=== PATIENT | female | born 1960 | race American Indian/Alaskan Native ===

== ENCOUNTER 2021-06-09 20:52 | Inpatient (IN) | payer MEDICARE ==
[2021-06-09] MEDS ORDERED: SODIUM CHLORIDE 0.9% 1000 ML IV SOLN IV ONE (21:14)
[2021-06-09] MEDS ORDERED: VANCOMYCIN 1,250 MG in SODIUM CHLORIDE 0.9% 500 ML 500 ML IV ONE (21:14)
[2021-06-09] MEDS ORDERED: CEFEPIME/NS 2 GM/100 ML 2 GM/100 ML BAG IV ONE (21:14)
--- NOTE | 2021-06-09 21:14 | Emergency Department Report ---
ED Fever HPI - General Chief Complaint: Fever Stated Complaint: FEVER PUI?: No Time Seen by Provider: 06/09/21 21:03 Source: EMS, other Exam Limitations: language barrier - History of Present Illness Initial Comments: Chief complaint: Fever HPI: This is a 61-year-old female with history of CVA with resultant dysphagia right-sided hemiparesis, CVA, hypertension, chronic kidney disease, venous thrombolic embolism, gastrostomy, dementia, COVID-19, stage IV sacral decubitus ulcer, septic shock, failure to thrive, UTI, hyperlipidemia, major affective di sorder, anxiety disorder, constipation, anemia, rhinitis who presents from [facility] for fever 102.5 F hypotension 8754. Patient is nonverbal at baseline. Timing/Duration: this evening Fever Severity/Quality: greater than 102 F ED Review of Systems ROS: Stated complaint: FEVER Other details as noted in HPI Comment: Unobtainable due to pts medical conditions (Nonverbal) ED Past Medical Hx - Past Medical History Previous Medical History?: Yes Hx Hypertension: Yes Hx CVA: Yes Hx Congestive Heart Failure: No Hx Diabetes: No Hx Deep Vein Thrombosis: (unknown) Hx Seizures: Yes Hx Asthma: No Hx COPD: No Hx Dementia: Yes Additional medical history: encephalopathy, anemia, apahsia, dysphagia, hypookalemia - Surgical History Past Surgical History?: Yes Hx Pacemaker: No Hx Internal Defibrillator: No - Social History Smoking Status: Unknown if ever smoked - Medications Home Medications: Home Medications Medication Instructions Recorded Confirmed Last Taken Type Acetaminophen [Acetaminophen 650 mg [place] Q6H PRN supp.rect 06/02/20 09/04/20 Unknown Rx SUPPOS] Aspirin EC [Halfprin EC] 81 mg FEEDTUBE QDAY 07/21/20 09/04/20 Unknown History Atorvastatin [Lipitor] 80 mg FEEDTUBE QDAY 07/21/20 09/04/20 Unknown History Baclofen 5 mg FEEDTUBE TID 07/21/20 09/04/20 Unknown History Ferrous Sulfate 7.5 mg FEEDTUBE QDAY 07/21/20 09/04/20 Unknown History Losartan Potassium 50 mg FEEDTUBE QDAY 07/21/20 09/04/20 Unknown History Sertraline [Zoloft] 100 mg FEEDTUBE QDAY 07/21/20 09/04/20 Unknown History carvediloL [Coreg] 6.25 mg FEEDTUBE BID 07/21/20 09/04/20 Unknown History cloNIDine-TTS PATCH [Catapres-Tts 1 patch TD 1XW 07/21/20 09/04/20 Unknown History 0.3mg Patch] donepeziL [Aricept] 10 mg FEEDTUBE QDAY 07/21/20 09/04/20 Unknown History levETIRAcetam [Keppra] 100 mg PO Q12HR 07/21/20 09/04/20 Unknown History Furosemide [Lasix TAB] 40 mg PO QDAY #30 tablet 07/29/20 09/04/20 Unknown Rx amLODIPine 2.5 mg PO QDAY #30 tablet 07/29/20 09/04/20 Unknown Rx ALBUTEROL NEB's [Proventil 0.083% 2.5 mg IH Q4HRT PRN nebu 09/04/20 Unknown Rx NEBS] Ascorbic Acid [Vitamin C] 500 mg PO BID tablet 09/04/20 Unknown Rx Cholecalciferol (Vitamin D3) 5,000 unit PO DAILY tablet 09/04/20 Unknown Rx [Vitamin D3] Famotidine [Pepcid] 20 mg PO QAM tablet 09/04/20 Unknown Rx Lipase/Protease/Amylase [Pancreaze 1 each FEEDTUBE PRN PRN capsule 09/04/[address],500 Unit] Zinc Sulfate 220 mg PO BID capsule 09/04/20 Unknown Rx amLODIPine 5 mg FEEDTUBE QDAY tablet 09/04/20 Unknown Rx carvediloL [Coreg] 12.5 mg FEEDTUBE DAILY tablet 09/04/20 Unknown Rx levoFLOXacin [Levaquin TAB] 750 mg PO QDAY #3 tablet 09/04/20 09/04/20 Unknown Rx ED Physical Exam - General Limitations: No Limitations General appearance: alert, in no apparent distress, cachectic, other (Contracted extremities. Warm to touch) - Head Head exam: Present: atraumatic, normocephalic - Eye Eye exam: Present: normal appearance - ENT ENT exam: Present: mucous membranes moist - Neck Neck exam: Present: normal inspection, full ROM. Absent: tenderness, meningismus - Respiratory Respiratory exam: Present: decreased breath sounds. Absent: wheezes, rales, rhonchi, accessory muscle use, prolonged expiratory - Cardiovascular Cardiovascular Exam: Present: regular rate, normal rhythm, normal heart sounds. Absent: systolic murmur, diastolic murmur, rubs, gallop - GI/Abdominal GI/Abdominal exam: Present: soft, normal bowel sounds, other (Gastrostomy tube present). Absent: distended, tenderness, guarding, rebound - Extremities Exam Extremities exam: Present: other (Cachectic contracted extremities without e lisset) - Back Exam Back exam: Present: other (See below for skin exam) - Neurological Exam Neurological exam: Present: alert - Psychiatric Psychiatric exam: Present: depressed, flat affect - Skin Skin exam: Present: warm, dry, normal color, erythema (Erythema extends into the thighs and gluteus), other (Large stage IV sacral decubitus ulcer with eschar and purulence surrounding erythema and excoriation.). Absent: rash ED Course Vital Signs 06/09/21 06/09/21 06/09/21 21:09 21:26 21:31 Temperature 102.5 F H Pulse Rate 84 87 86 Respiratory 22 18 29 H Rate Blood Pressure Blood Pressure 88/57 [Left] O2 Sat by Pulse 94 98 Oximetry 06/09/21 06/09/21 21:45 22:01 Temperature Pulse Rate 87 85 Respiratory 28 H 25 H Rate Blood Pressure 88/55 Blood Pressure [Left] O2 Sat by Pulse 99 98 Oximetry - Reevaluation(s) Reevaluation #1: 06/09/21 21:53 RN informed me that she removed clonidine patch from patient's left chest. Reevaluation #2: 06/09/21 23:30 Repeat blood pressure after removal of clonidine patch and 30 mL/kg per normal saline bolus 101/72. No indication for vasopressor therapy at this time. Patient not have tachycardia or severe lactic acidosis. Reevaluation #3: 06/10/21 00:31 Blood pressure remained normal improved. Norepinephrine ordered as needed. ED Medical Decision Making - Lab Data Result diagrams: 06/09/21 21:35 06/09/21 21:35 - Radiology Data Radiology results: report reviewed Patient Name: KEIRA RAMEY Gender: Female Date of : 1960 Referring Provider: LATOSHA ABREU Organization: [facility] Accession Number: [id number] Requested Date: June 09, 2021 21:14 Report Status: Final Requested Procedure: 1 Procedure Description: XR chest 1V ap Modality: XR Findings Reporting MD: Dago Anne Dictation Time: June 09, 2021 20:41 Hemodialysis Patient Care Specialist: Not available Phone Specialist Date: CHEST 1 VIEW 06/09/2021 8:36 PM INDICATION / CLINICAL INFORMATION: Fever severe sepsis. COMPARISON: 08/30/2020 FINDINGS: SUPPORT DEVICES: None. HEART / MEDIASTINUM: No significant abnormality. LUNGS / PLEURA: Mild interstitial prominence within the lower lungs appears improved No pneumothorax. Signer Name: Dago Anne MD Signed: 06/09/2021 8:41 PM Workstation Name: [id number] [place] [address] Cat Scan Report Signed Patient: KEIRA RAMEY MR#: [id number] 57 : 1960 Acct:[id number] Age/Sex: 61 / F ADM Date: 06/09/21 Loc: ED Attending Dr: Ordering Physician: Latosha Lopes MD Date of Service: 06/09/21 Procedure(s): CT abdomen pelvis wo con Accession Number(s): [id number] cc: Latosha Lopes MD CT CHEST, ABDOMEN, AND PELVIS WITHOUT CONTRAST INDICATION / CLINICAL INFORMATION: septic shock abnormal liver function sacral ulcer. TECHNIQUE: Axial CT images were obtained through the chest, abdomen, and pelvis without contrast. All CT scans at this location are performed using CT dose reduction for ALARA by means of automated exposure control. COMPARISON: August 2020 FINDINGS: CHEST: Increased densities are seen within the lower lungs however these densities appear improved since August. Mild interstitial prominence within bilateral lungs. Only trace effusions. Thoracic aorta is slightly prominent however unchanged. ABDOMEN/PELVIS: Liver is mildly enlarged. A tube is noted. Spleen, adrenal glands, pancreas and upper GI tract appear normal. There is a sacral ulceration with loss of soft tissue overlying the sacrum. Underlying bony sclerosis and irregularity with surrounding soft tissue density. No drainable collection is seen. No bowel obstruction.. Tiny focus of gas in the bladder. Degenerative changes seen throughout. IMPRESSION: 1. Large ulceration overlying the sacrum with left gluteal decubitus ulceration. This extends to the level of the sacrum and there is mild sclerosis and irregularity within the sacrum. Osteomyelitis is not excluded. Findings also seen on prior exam. 2. Lower lobe atelectasis/infiltrate with trace effusions. Signer Name: Dago nAne MD Signed: 06/09/2021 10:57 PM Workstation Name: [id number] Transcribed By: CLARE Dictated By: DORETHA ANNE MD Electronically Authenticated By: DORETHA ANNE MD Signed Date/Time: 06/09/212256 DD/ 53 TD/TT: - Medical Decision Making 1. Septic shock due to infected sacral decubitus ulcer, bilateral lower extremity cellulitis. No tissue infection evident on examination: CT findings likely reflective of osteomyelitis. No convincing evidence of pneumonia. Urinalysis pending. Purulent opaque urine collected in Aguil[place] catheter bag. 2. Abnormal liver function tests with enlarged liver on CT scan no hyperbilirubinemia to indicate biliary obstruction considerations: hepatic steat osis, shock liver, medication adverse effect 3. Acute prerenal injury: Vasomotor nephropathy due to hypoperfusion. Work-up reflects leukocytosis anemia uptrending lactic acidosis which prompted CVL insertion as well as persistent hypotension. Critical Care Time: Yes Critical care time in (mins) excluding proc time.: 40 Critical care attestation.: If time is entered above; I have spent that time in minutes in the direct care of this critically ill patient, excluding procedure time. 40 minutes of critical care time excluding procedures were used in the care of the patient. I came immediately to the bedside upon patient's arrival. I obtained history from EMS at the bedside. I discussed treatment plan with the [facility] team members. I reviewed electronic record. Patient required immediate intervention due to septic shock. Patient required multiple interventions and reassessments. ED Disposition Clinical Impression: Septic shock, Acute kidney injury, Stage 4 skin ulcer of sacral region, Complicated UTI (urinary tract infection), Decubitus ulcer, stage 4 with infec tion Disposition: ADMITTED INPATIENT Is pt being admited?: Yes Does the pt Need Aspirin: No Condition: Fair
[2021-06-09] MEDS ORDERED: VANCOMYCIN 1,250 MG in SODIUM CHLORIDE 0.9% 250ML 250 ML IV ONE (21:30)
--- NOTE | 2021-06-09 21:45 | XRay Report ---
CHEST 1 VIEW 06/09/2021 8:36 PM INDICATION / CLINICAL INFORMATION: Fever severe sepsis. COMPARISON: 08/30/2020 FINDINGS: SUPPORT DEVICES: None. HEART / MEDIASTINUM: No significant abnormality. LUNGS / PLEURA: Mild interstitial prominence within the lower lungs appears improved No pneumothorax. Signer Name: Dago Anne MD Signed: 06/09/2021 9:41 PM Workstation Name: [id number]
[2021-06-09] MEDS ORDERED: VANCOMYCIN PHARMACY TO DOSE IV SCH (22:00)
[2021-06-09 22:08] LABS: Albumin 2.2 g/dL (3.9-5); Calcium 8.9 mg/dL (8.4-10.2)
--- NOTE | 2021-06-09 23:01 | Cat Scan Report ---
CT CHEST, ABDOMEN, AND PELVIS WITHOUT CONTRAST INDICATION / CLINICAL INFORMATION: septic shock abnormal liver function sacral ulcer. TECHNIQUE: Axial CT images were obtained through the chest, abdomen, and pelvis without contrast. All CT scans a t this location are performed using CT dose reduction for ALARA by means of automated exposure contro l. COMPARISON: August 2020 FINDINGS: CHEST: Increased densities are seen within the lower lungs however these densities appear improved si nce August. Mild interstitial prominence within bilateral lungs. Only trace effusions. Thoracic aorta is slightly prominent however unchanged. ABDOMEN/PELVIS: Liver is mildly enlarged. A tube is noted. Spleen, adrenal glands, pancreas and upper GI tract appear normal. There is a sacral ulceration with loss of soft tissue overlying the sacrum. Underlying bony sclerosis and irregularity with surrounding soft tissue density. No drainable collection is seen. No bowel obs truction.. Tiny focus of gas in the bladder. Degenerative changes seen throughout. IMPRESSION: 1. Large ulceration overlying the sacrum with left gluteal decubitus ulceration. This extends to the level of the sacrum and there is mild sclerosis and irregularity within the sacrum. Osteomyelitis is not excluded. Findings also seen on prior exam. 2. Lower lobe atelectasis/infiltrate with trace effusions. Signer Name: Dago Anne MD Signed: 06/09/2021 10:57 PM Workstation Name: [id number]
[2021-06-10 00:07] LABS: Hematocrit 22.8 % (30.3-42.9); Hemoglobin 7.4 gm/dl (10.1-14.3); Mean Corpuscular HGB Conc 33 % (30-34); Mean Corpuscular Volume 87 fl (79-97); Platelet Count 245 K/mm3 (140-440); Red Blood Count 2.63 M/mm3 (3.65-5.03); Red Cell Distribution Width 16.5 % (13.2-15.2)
[2021-06-10] MEDS ORDERED: LORazepam 2 MG/ML VIAL IV STA (00:27)
[2021-06-10] MEDS ORDERED: levETIRAcetam 1000 MG/NS 0.75% 1,000 MG/100 ML BAG IV ONE ×2 (00:28→03:31)
[2021-06-10] MEDS ORDERED: MORPHINE 4 MG/1 ML INJ IV PRN (00:28)
[2021-06-10] MEDS ORDERED: NORepinephrine/NS 8 MG-250 ML 8 MG/250 ML INFUS..BTL IV SCH (01:00)
--- NOTE | 2021-06-10 01:01 | XRay Report ---
CHEST 1 VIEW 06/10/2021 12:32 AM INDICATION / CLINICAL INFORMATION: right internal jugular CVL insertion. COMPARISON: 06/09/2021 FINDINGS: SUPPORT DEVICES: Right IJ line tip overlies distal SVC HEART / MEDIASTINUM: No significant abnormality. LUNGS / PLEURA: Mild interstitial prominence within the lungs without significant change No pneumotho rax. Signer Name: Dago Anne MD Signed: 06/10/2021 12:56 AM Workstation Name: [id number]
[2021-06-10 01:27] LABS: Amorphous Crystals,Urine Few; Bilirubin,Urine NEG (Negative); Blood,Urine NEG (Negative); Color,Urine Amber (Yellow); Mucus,Urine FEW /HPF
[2021-06-10 01:36] LABS: Protein,Urine <15 mg/dL mg/dL (Negative); WBC,Urine < 1.0 /HPF (0.0-6.0)
[2021-06-10] MEDS ORDERED: HYDROmorphone 1 MG/1 ML INJ IV PRN (02:20)
[2021-06-10] MEDS ORDERED: ONDANSETRON 4 MG/2 ML INJ IV PRN (02:20)
--- NOTE | 2021-06-10 02:28 | History and Physical Report ---
History of Present Illness Date of examination: 06/10/21 Date of admission: 06/10/21 Chief complaint: fever History of present illness: 61-year-old female with history of CVA with resultant dysphagia right-sided hemiparesis, CVA, hypertension, chronic kidney disease, venous thrombolic embolism, gastrostomy, dementia, COVID-19, stage IV sacral decubitus ulcer, septic shock, failure to thrive, UTI, hyperlipidemia, major affective disorder, anxiety disorder, constipation, anemia, rhinitis who presents from [facility] facility for fever 102.5 F and patient is hypotensive 88/ 54. Patient is nonverbal at baseline. In the emergency room patient is found to have WBC of 21.2, hemoglobin of 7.4 hematocrit 22.8, BUN of 53 creatinine 1.4 and lactic acid 3.40, CT scan of the abdomen pelvis showed large ulceration overlying the sacrum with left gluteal decubitus ulceration. These extend to the level of the sacrum and there is mild sclerosis and ileal irregularity within the sacrum. Osteomyelitis is not excluded #2 lower lobe atelectasis infiltrate with trace effusion. Repeat blood pressure after removal of clonidine patch and 30 mL/kg per normal saline bolus 101/72. No indication for vasopressor therapy at this time.'s were going to admit the patient IMCU overnight we will put the patient on IV fluid and IV antibiotics cefepime and vancomycin. Will consult infectious disease evaluation Past History Past Medical History: hypertension, renal failure, stroke, other (hronic kidney disease, venous thrombolic embolism, gastrostomy, dementia, COVID-19, stage IV sacral decubitus ulcer, septic shock, failure to thrive, UTI, hyperlipidemia, major affective disorder, anxiety disorder, constipation, anemia, rhinitis ) Medications and Allergies Allergies Allergy/AdvReac Type Severity Reaction Status Date / Time adhesive tape AdvReac Unknown Verified 08/30/20 22:21 lisinopril AdvReac Unknown Verified 08/30/20 22:21 Home Medications Medication Instructions Recorded Confirmed Last Taken Type Acetaminophen [Acetaminophen 650 mg [place] Q6H PRN supp.rect 06/02/20 09/04/20 Unknown Rx SUPPOS] Aspirin EC [Halfprin EC] 81 mg FEEDTUBE QDAY 07/21/20 09/04/20 Unknown History Atorvastatin [Lipitor] 80 mg FEEDTUBE QDAY 07/21/20 09/04/20 Unknown History Baclofen 5 mg FEEDTUBE TID 07/21/20 09/04/20 Unknown History Ferrous Sulfate 7.5 mg FEEDTUBE QDAY 07/21/20 09/04/20 Unknown History Losartan Potassium 50 mg FEEDTUBE QDAY 07/21/20 09/04/20 Unknown History Sertraline [Zoloft] 100 mg FEEDTUBE QDAY 07/21/20 09/04/20 Unknown History carvediloL [Coreg] 6.25 mg FEEDTUBE BID 07/21/20 09/04/20 Unknown History cloNIDine-TTS PATCH [Catapres-Tts 1 patch TD 1XW 07/21/20 09/04/20 Unknown History 0.3mg Patch] donepeziL [Aricept] 10 mg FEEDTUBE QDAY 07/21/20 09/04/20 Unknown History levETIRAcetam [Keppra] 100 mg PO Q12HR 07/21/20 09/04/20 Unknown History Furosemide [Lasix TAB] 40 mg PO QDAY #30 tablet 07/29/20 09/04/20 Unknown Rx amLODIPine 2.5 mg PO QDAY #30 tablet 07/29/20 09/04/20 Unknown Rx ALBUTEROL NEB's [Proventil 0.083% 2.5 mg IH Q4HRT PRN nebu 09/04/20 Unknown Rx NEBS] Ascorbic Acid [Vitamin C] 500 mg PO BID tablet 09/04/20 Unknown Rx Cholecalciferol (Vitamin D3) 5,000 unit PO DAILY tablet 09/04/20 Unknown Rx [Vitamin D3] Famotidine [Pepcid] 20 mg PO QAM tablet 09/04/20 Unknown Rx Lipase/Protease/Amylase [Pancreaze 1 each FEEDTUBE PRN PRN capsule 09/04/[address],500 Unit] Zinc Sulfate 220 mg PO BID capsule 09/04/20 Unknown Rx amLODIPine 5 mg FEEDTUBE QDAY tablet 09/04/20 Unknown Rx carvediloL [Coreg] 12.5 mg FEEDTUBE DAILY tablet 09/04/20 Unknown Rx levoFLOXacin [Levaquin TAB] 750 mg PO QDAY #3 tablet 09/04/20 09/04/20 Unknown Rx Active Meds: Active Medications NORepinephrine/NS 8 MG-250 ML (Norepinephrine/Ns 8 Mg-250 Ml (Double Conc)) 8 mg in 250 mls @ 3.75 mls/hr IV TITRATE NELIDA; Protocol Morphine Sulfate (Morphine 4 Mg/1 Ml Inj) 4 mg IV ONCE PRN PRN Reason: Pain , Severe (7-10) Review of Systems All systems: negative Constitutional: fever, malaise, lethargy Neurological: change in mentation Exam - Constitutional Vitals: Temp Pulse Resp BP Pulse Ox 102.5 F H 99 H 38 H 104/62 95 06/09/21 21:09 06/10/21 01:01 06/10/21 01:01 06/10/21 01:01 06/10/21 01:01 General appearance: Present: no acute distress, well-nourished - EENT Eyes: Present: PERRL ENT: hearing intact, clear oral mucosa - Neck Neck: Present: supple, normal ROM - Respiratory Respiratory effort: normal Respiratory: bilateral: diminished - Cardiovascular Heart Sounds: Present: S1 & S2. Absent: rub, click - Extremities Extremities: pulses symmetrical, No edema Peripheral Pulses: within normal limits - Abdominal General gastrointestinal: Present: soft, non-tender, non-distended, normal bowel sounds, other (Gastrostomy tube present) Female genitourinary: Present: normal - Integumentary Integumentary: Present: clear, warm, dry - Musculoskeletal Musculoskeletal: gait normal, strength equal bilaterally - Psychiatric Psychiatric: other (Patient is lethargic) - Neurologic Neurologic: CNII-XII intact, moves all extremities, other (Patient is lethargic) - Additional findings Additional findings: Skin warm, dry, normal color, erythema (Erythema extends into the thighs and gluteus), other (Large stage IV sacral decubitus ulcer with eschar and purulence surrounding erythema and excoriation.). Absent: rash Results - Labs CBC & Chem 7: 06/09/21 21:35 06/09/21 21:35 Labs: Laboratory Last Values WBC 21.2 K/mm3 (4.5-11.0) H 06/09/21 21:35 RBC 2.63 M/mm3 (3.65-5.03) L 06/09/21 21:35 Hgb 7.4 gm/dl (10.1-14.3) L 06/09/21 21:35 Hct 22.8 % (30.3-42.9) L 06/09/21 21:35 MCV 87 fl (79-97) 06/09/21 21:35 MCH 28 pg (28-32) 06/09/21 21:35 MCHC 33 % (30-34) 06/09/21 21:35 RDW 16.5 % (13.2-15.2) H 06/09/21 21:35 Plt Count 245 K/mm3 (140-440) 06/09/21 21:35 [place] % (Auto) Grinding Wheel Facer 06/09/21 21:35 Eos % (Auto) Grinding Wheel Facer 06/09/21 21:35 Baso % (Auto) Grinding Wheel Facer 06/09/21 21:35 Lymph # (Auto) Grinding Wheel Facer 06/09/21 21:35 [place] # (Auto) Grinding Wheel Facer 06/09/21 21:35 Eos # (Auto) Grinding Wheel Facer 06/09/21 21:35 Baso # (Auto) Grinding Wheel Facer 06/09/21 21:35 Seg Neutrophils # Grinding Wheel Facer 06/09/21 21:35 Sodium 137 mmol/L (137-145) 06/09/21 21:35 Potassium 4.5 mmol/L (3.6-5.0) 06/09/21 21:35 Chloride 99.7 mmol/L (98-107) 06/09/21 21:35 Carbon Dioxide 25 mmol/L (22-30) 06/09/21 21:35 Anion Gap 17 mmol/L 06/09/21 21:35 BUN 53 mg/dL (7-17) H 06/09/21 21:35 Creatinine 1.4 mg/dL (0.6-1.2) H 06/09/21 21:35 Estimated GFR 47 ml/min 06/09/21 21:35 BUN/Creatinine Ratio 38 % 06/09/21 21:35 Glucose 145 mg/dL (65-100) H 06/09/21 21:35 Lactic Acid 3.40 mmol/L (0.7-2.0) H* 06/09/21 23:16 Calcium 8.9 mg/dL (8.4-10.2) 06/09/21 21:35 Total Bilirubin 1.20 mg/dL (0.1-1.2) 06/09/21 21:35 AST 336 units/L (5-40) H 06/09/21 21:35 ALT 330 units/L (7-56) H 06/09/21 21:35 Alkaline Phosphatase 208 units/L (35-129) H 06/09/21 21:35 Total Protein 7.9 g/dL (6.3-8.2) 06/09/21 21:35 Albumin 2.2 g/dL (3.9-5) L 06/09/21 21:35 Albumin/Globulin Ratio 0.4 % 06/09/21 21:35 Urine Color [place] (Yellow) 06/10/21 00:30 Urine Turbidity Cloudy (Clear) 06/10/21 00:30 Urine pH 6.0 (5.0-7.0) 06/10/21 00:30 Ur Specific [place] 1.019 (1.003-1.030) 06/10/21 00:30 Urine Protein <15 mg/dl mg/dL (Negative) 06/10/21 00:30 Urine Glucose (UA) Neg mg/dL (Negative) 06/10/21 00:30 Urine Ketones Neg mg/dL (Negative) 06/10/21 00:30 Urine Blood Neg (Negative) 06/10/21 00:30 Urine Nitrite Neg (Negative) 06/10/21 00:30 Urine Bilirubin Neg (Negative) 06/10/21 00:30 Urine Urobilinogen 2.0 mg/dL (<2.0) 06/10/21 00:30 Ur Leukocyte Esterase Lg (Negative) 06/10/21 00:30 Urine WBC (Auto) < 1.0 /HPF (0.0-6.0) 06/10/21 00:30 Urine RBC (Auto) 6.0 /HPF (0.0-6.0) 06/10/21 00:30 U Epithel Cells (Auto) < 1.0 /HPF (0-13.0) 06/10/21 00:30 Urine WBC Clumps 3+ /HPF 06/10/21 00:30 Amorphous Crystals Few 06/10/21 00:30 Urine Mucus Few /HPF 06/10/21 00:30 Microbiology: Microbiology 06/09/21 21:35 Peripheral/Venous Blood Culture - Preliminary Culture in Progress 06/09/21 21:37 Peripheral/Venous Blood Culture - Preliminary Culture in Progress - Imaging and Cardiology Chest x-ray: report reviewed CT scan - abdomen: report reviewed CT scan - chest: report reviewed Assessment and Plan VTE prophylaxis?: Chemical Plan of care discussed with patient/family: Yes - Patient Problems (1) Septic shock Current Visit: Yes Status: Acute Plan to address problem: Admit the patient to the [facility] overnight. Oxygen via nasal cannula 3 L/min DuoNeb by nebulizer every 4 hours. Normal saline at the rate of 125 cc/h. Cefepime 1 g IV every 8 hours. Vancomycin 1 g IV every 12 hours. Will consult infectious disease for evaluation. We do the blood culture wound culture. Wound care evaluation. Recheck CBC BMP in the morning (2) Decubitus ulcer, stage 4 with infection Current Visit: Yes Status: Acute Plan to address problem: Cefepime 1 g IV every 8 hours. Vancomycin 1 g IV every 12 hours. Will consult infectious disease for evaluation. We do the blood culture wound culture. Wound care evaluation. Recheck CBC BMP in the morning (3) Acute kidney injury Current Visit: Yes Status: Acute Plan to address problem: Avoid nephrotoxic drug. Renally dose medication. Normal saline at the rate of 125 cc/h. Recheck BMP in the morning (4) Complicated UTI (urinary tract infection) Current Visit: Yes Status: Acute Plan to address problem: We will send the urine for culture. Patient is on cefepime 1 g IV every 8 hours and. Vancomycin 1 g IV every 12 hours (5) Acute metabolic encephalopathy Current Visit: No Status: Acute Plan to address problem: Most likely secondary to sepsis ISSAC. We will put the patient oxygen 3 L/min. DuoNeb by nebulizer every 4 hours as needed. IV fluid and antibiotic. We will monitor the patient closely (6) Pneumonia of both lower lobes Current Visit: No Status: Acute Plan to address problem: Suspected pneumonia. Oxygen via nasal cannula 3 L/min DuoNeb by nebulizer every 4 hours. Normal saline at the rate of 125 cc/h. Cefepime 1 g IV every 8 hours. Vancomycin 1 g IV every 12 hours. Will consult infectious disease for evaluation. We do the blood culture . (7) DVT prophylaxis Current Visit: No Status: Acute Plan to address problem: Heparin 5000 unit SQ every 12 hours for DVT prophylaxis. Pepcid 20 mg p.o. twice daily for GI prophylaxis. Patient is a full code
[2021-06-10] MEDS ORDERED: VANCOMYCIN PHARMACY TO DOSE IV SCH (03:00)
[2021-06-10] MEDS ORDERED: CEFEPIME/NS 1 GM/100 ML 1 GM/100 ML BAG IV SCH (03:00)
[2021-06-10] MEDS ORDERED: VANCOMYCIN/NS 1 GM/250 ML 1 GM/250 ML BAG IV SCH (03:00)
[2021-06-10] MEDS ORDERED: ACETAMINOPHEN 650 MG RECT SUPP PR ONE (04:08)
[2021-06-10] MEDS: SODIUM CHLORIDE 0.9% 1000 ML 1,000 ML IV SCH ×3 (04:20→21:38)
[2021-06-10] MEDS: ACETAMINOPHEN 325 MG TAB PO PRN ×2 (06:39→21:40)
[2021-06-10 08:12] LABS: Eosinophils % (Manual) 1 % (0.0-4.3); Monocytes % (Manual) 1 % (0.0-7.3)
[2021-06-10 08:13] LABS: Basophils % (Manual) 1 % (0.0-1.8)
[2021-06-10] MEDS: CEFEPIME/NS 1 GM/100 ML 1 GM/100 ML BAG IV SCH ×2 (09:57→21:38)
[2021-06-10] MEDS: HEPARIN 5,000 UNIT/1 ML VIAL SUB-Q SCH ×2 (09:57→21:39)
[2021-06-10] MEDS: FAMOTIDINE 10 MG TAB PO SCH ×2 (09:57→21:39)
[2021-06-10] MEDS ORDERED: FAMOTIDINE 20 MG TAB PO SCH (10:00)
--- NOTE | 2021-06-10 13:50 | Progress Note ---
Assessment and Plan Assessment and plan: History of present illness: 61-year-old female with history of CVA with resultant dysphagia right-sided hemiparesis, CVA, hypertension, chronic kidney disease, venous thrombolic embolism, gastrostomy, dementia, COVID-19, stage IV sacral decubitus ulcer, septic shock, failure to thrive, UTI, hyperlipidemia, major affective disorder, anxiety disorder, constipation, anemia, rhinitis who presents from [facility] half-way facility for fever 102.5 F and patient is hypotensive 88/ 54. Patient is nonverbal at baseline. Admitted to [facility] for Severe Sepsis 2/2 to decubitus ulcer and UTI. Hospital Course: 06/10: Continue empiric abx, will follow ID input. BLood pressure and lactic acid downtrending improved, continue fluid resuscitation. Will follow culture data. COVID PCR is negative. Assessment and Plan: (1) Severe Sepsis POA (improved) Current Visit: Yes Status: Acute Plan to address problem: WBC of 21.2, hemoglobin of 7.4 hematocrit 22.8, BUN of 53 creatinine 1.4 and lactic acid 3.40, Normal saline at the rate of 125 cc/h. Cefepime 1 g IV every 8 hours. Vancomycin 1 g IV every 12 hours. Will consult infectious disease for evaluation. blood culture wound culture. COVID PCR Negative. MRSA swab Wound care evaluation. Recheck CBC BMP in the morning Not currently on pressors. (2) Decubitus ulcer, stage 4 with infection Current Visit: Yes Status: Acute Plan to address problem: -Cefepime 1 g IV every 8 hours. Vancomycin 1 g IV every 12 hours. Will consult infectious disease for evaluation. We do the blood culture wound culture. Wound care evaluation. Recheck CBC BMP in the morning -CT scan of the abdomen pelvis showed large ulceration overlying the sacrum with left gluteal decubitus ulceration. These extend to the level of the sacrum and there is mild sclerosis and ileal irregularity within the sacrum. Osteomyelitis is not excluded #2 lower lobe atelectasis infiltrate with trace effusion. - Appears to have chronic osteomyelitis. (3) Acute kidney injury due to vasomotor nephropathy Current Visit: Yes Status: Acute Plan to address problem: Avoid nephrotoxic drug. Renally dose medication. Normal saline at the rate of 125 cc/h. Recheck BMP in the morning BUN of 53 creatinine 1.4 (4) Complicated UTI (urinary tract infection) Current Visit: Yes Status: Acute Plan to address problem: We will send the urine for culture. Patient is on cefepime 1 g IV every 8 hours and. Vancomycin 1 g IV every 12 hours (5) Acute metabolic encephalopathy Current Visit: No Status: Acute Plan to address problem: Most likely secondary to sepsis ISSAC. We will put the patient oxygen 3 L/min. DuoNeb by nebulizer every 4 hours as needed. IV fluid and antibiotic. We will monitor the patient closely (6) Pneumonia of both lower lobes Current Visit: No Status: Acute Plan to address problem: Noted on CTAP. Suspected pneumonia. Oxygen via nasal cannula 2 L/min DuoNebs Normal saline at the rate of 125 cc/h. Cefepime 1 g IV every 8 hours. Vancomycin 1 g IV every 12 hours. Will consult infectious disease for evaluation. Sputum cx. (7) Nonverbal status Current Visit: No Status: Chronic Plan to address problem: Prior CVA, nonverbal at baseline. hemiplegia. (8) DVT prophylaxis Current Visit: No Status: Acute Plan to address problem: Heparin 5000 unit SQ every 12 hours for DVT prophylaxis. Pepcid 20 mg p.o. twice daily for GI prophylaxis. Patient is a full code #Advance care planning Disease education conducted, care plan discussed, diagnoses discussed, prognosis discussed, patient is full code, patient acknowledges understanding and agree with care plan, +30 minutes. The high probability of a clinically significant, sudden or life threatening deterioration of the [ID, pulm] system(s) required my full and direct attention, intervention and personal management. The aggregate critical care time was [60] minutes. This time is in addition to time spent performing reported procedures but includes the following: [x] Data Review and interpretation [x] Patient assessment and monitoring of vital signs [x] Documentation [x] Medication orders and management History Interval history: Altered, unable to obtain history on exam. Vitals improved, blood pressure in 100's systolic at the time of encounter. Hospitalist Physical - Physical exam Narrative exam: General appearance: Present: no acute distress, well-nourished - EENT Eyes: Present: PERRL ENT: hearing intact, clear oral mucosa - Neck Neck: Present: supple, normal ROM - Respiratory Respiratory effort: normal Respiratory: bilateral: diminished - Cardiovascular Heart Sounds: Present: S1 & S2. Absent: rub, click - Extremities Extremities: pulses symmetrical, No edema Peripheral Pulses: within normal limits - Abdominal General gastrointestinal: Present: soft, non-tender, non-distended, normal bowel sounds, other (Gastrostomy tube present) Female genitourinary: Present: normal - Integumentary Integumentary: Present: clear, warm, dry - Musculoskeletal Musculoskeletal: gait normal, strength equal bilaterally - Psychiatric Psychiatric: (Patient is lethargic) - Neurologic Neurologic: (Patient is lethargic) - Additional findings Additional findings: Skin warm, dry, normal color, erythema (Erythema extends into the thighs and gluteus), other (Large stage IV sacral decubitus ulcer with eschar and purulence surrounding erythema and excoriation.). Absent: rash - Constitutional Vitals: Temp Pulse Resp BP Pulse Ox 97.9 F 63 19 105/71 100 06/10/21 12:00 06/10/21 13:21 06/10/21 13:21 06/10/21 13:21 06/10/21 13:21 General appearance: Present: no acute distress, well-nourished Results - Labs CBC & Chem 7: 06/09/21 21:35 06/09/21 21:35 Labs: Laboratory Last Values WBC 21.2 K/mm3 (4.5-11.0) H 06/09/21 21:35 RBC 2.63 M/mm3 (3.65-5.03) L 06/09/21 21:35 Hgb 7.4 gm/dl (10.1-14.3) L 06/09/21 21:35 Hct 22.8 % (30.3-42.9) L 06/09/21 21:35 MCV 87 fl (79-97) 06/09/21 21:35 MCH 28 pg (28-32) 06/09/21 21:35 MCHC 33 % (30-34) 06/09/21 21:35 RDW 16.5 % (13.2-15.2) H 06/09/21 21:35 Plt Count 245 K/mm3 (140-440) 06/09/21 21:35 [place] % (Auto) Stone Circular Sawyer 06/09/21 21:35 Eos % (Auto) Stone Circular [place] 06/09/21 21:35 Baso % (Auto) Stone Circular [place] 06/09/21 21:35 Lymph # (Auto) Stone Circular [place]yer 06/09/21 21:35 [place] # (Auto) Stone Circular Sawyer 06/09/21 21:35 Eos # (Auto) Stone Circular [place] 06/09/21 21:35 Baso # (Auto) Stone Circular [place] 06/09/21 21:35 Add Manual Diff Complete 06/09/21 21:35 Seg Neuts % (Manual) 83 % (40.0-70.0) H 06/09/21 21:35 Band Neutrophils % 2 % 06/09/21 21:35 Lymphocytes % (Manual) 12 % (13.4-35.0) L 06/09/21 21:35 Reactive Lymphs % (Man) 1 % 06/09/21 21:35 Monocytes % (Manual) 1 % (0.0-7.3) 06/09/21 21:35 Eosinophils % (Manual) 1 % (0.0-4.3) 06/09/21 21:35 Basophils % (Manual) 1 % (0.0-1.8) 06/09/21 21:35 Nucleated RBC % Not Reportable 06/09/21 21:35 Seg Neutrophils # Stone Circular Sawyer 06/09/21 21:35 WBC Morphology Not Reportable 06/09/21 21:35 Hypersegmented Neuts Not Reportable 06/09/21 21:35 Hyposegmented Neuts Not Reportable 06/09/21 21:35 Hypogranular Neuts Not Reportable 06/09/21 21:35 Smudge Cells Not Reportable 06/09/21 21:35 Toxic Granulation Not Reportable 06/09/21 21:35 Toxic Vacuolation Not Reportable 06/09/21 21:35 Dohle Bodies Not Reportable 06/09/21 21:35 Pelger-Huet Anomaly Not Reportable 06/09/21 21:35 Diana Rods Not Reportable 06/09/21 21:35 Platelet Estimate Not Reportable 06/09/21 21:35 Clumped Platelets Not Reportable 06/09/21 21:35 Plt Clumps, EDTA Not Reportable 06/09/21 21:35 Large Platelets Not Reportable 06/09/21 21:35 Giant Platelets Not Reportable 06/09/21 21:35 Platelet Satelliting Not Reportable 06/09/21 21:35 Plt Morphology Comment Not Reportable 06/09/21 21:35 RBC Morphology Not Reportable 06/09/21 21:35 Dimorphic RBCs Not Reportable 06/09/21 21:35 Polychromasia Not Reportable 06/09/21 21:35 Hypochromasia Not Reportable 06/09/21 21:35 Poikilocytosis Not Reportable 06/09/21 21:35 Anisocytosis Not Reportable 06/09/21 21:35 Microcytosis Not Reportable 06/09/21 21:35 Macrocytosis Not Reportable 06/09/21 21:35 Spherocytes Not Reportable 06/09/21 21:35 Pappenheimer Bodies Not Reportable 06/09/21 21:35 Sickle Cells Not Reportable 06/09/21 21:35 Target Cells Not Reportable 06/09/21 21:35 Tear Drop Cells Not Reportable 06/09/21 21:35 Ovalocytes Not Reportable 06/09/21 21:35 Helmet Cells Not Reportable 06/09/21 21:35 Nicholas-Mineral Bodies Not Reportable 06/09/21 21:35 [place] Rings Not Reportable 06/09/21 21:35 Mdaison Cells Not Reportable 06/09/21 21:35 Bite Cells Not Reportable 06/09/21 21:35 Crenated Cell Not Reportable 06/09/21 21:35 Elliptocytes Not Reportable 06/09/21 21:35 Acanthocytes (Spur) Not Reportable 06/09/21 21:35 Rouleaux Not Reportable 06/09/21 21:35 Hemoglobin C Crystals Not Reportable 06/09/21 21:35 Schistocytes Not Reportable 06/09/21 21:35 Malaria parasites Not Reportable 06/09/21 21:35 Juan Miguel Bodies Not Reportable 06/09/21 21:35 Hem Pathologist Commnt No 06/09/21 21:35 Sodium 137 mmol/L (137-145) 06/09/21 21:35 Potassium 4.5 mmol/L (3.6-5.0) 06/09/21 21:35 Chloride 99.7 mmol/L (98-107) 06/09/21 21:35 Carbon Dioxide 25 mmol/L (22-30) 06/09/21 21:35 Anion Gap 17 mmol/L 06/09/21 21:35 BUN 53 mg/dL (7-17) H 06/09/21 21:35 Creatinine 1.4 mg/dL (0.6-1.2) H 06/09/21 21:35 Estimated GFR 47 ml/min 06/09/21 21:35 BUN/Creatinine Ratio 38 % 06/09/21 21:35 Glucose 145 mg/dL (65-100) H 06/09/21 21:35 POC Glucose 116 mg/dL (70-105) H 06/10/21 05:28 Lactic Acid 1.90 mmol/L (0.7-2.0) 06/10/21 02:46 Calcium 8.9 mg/dL (8.4-10.2) 06/09/21 21:35 Total Bilirubin 1.20 mg/dL (0.1-1.2) 06/09/21 21:35 AST 336 units/L (5-40) H 06/09/21 21:35 ALT 330 units/L (7-56) H 06/09/21 21:35 Alkaline Phosphatase 208 units/L (35-129) H 06/09/21 21:35 Total Protein 7.9 g/dL (6.3-8.2) 06/09/21 21:35 Albumin 2.2 g/dL (3.9-5) L 06/09/21 21:35 Albumin/Globulin Ratio 0.4 % 06/09/21 21:35 Urine Color [place] (Yellow) 06/10/21 00:30 Urine Turbidity Cloudy (Clear) 06/10/21 00:30 Urine pH 6.0 (5.0-7.0) 06/10/21 00:30 Ur Specific [place] 1.019 (1.003-1.030) 06/10/21 00:30 Urine Protein <15 mg/dl mg/dL (Negative) 06/10/21 00:30 Urine Glucose (UA) Neg mg/dL (Negative) 06/10/21 00:30 Urine Ketones Neg mg/dL (Negative) 06/10/21 00:30 Urine Blood Neg (Negative) 06/10/21 00:30 Urine Nitrite Neg (Negative) 06/10/21 00:30 Urine Bilirubin Neg (Negative) 06/10/21 00:30 Urine Urobilinogen 2.0 mg/dL (<2.0) 06/10/21 00:30 Ur Leukocyte Esterase Lg (Negative) 06/10/21 00:30 Urine WBC (Auto) < 1.0 /HPF (0.0-6.0) 06/10/21 00:30 Urine RBC (Auto) 6.0 /HPF (0.0-6.0) 06/10/21 00:30 U Epithel Cells (Auto) < 1.0 /HPF (0-13.0) 06/10/21 00:30 Urine WBC Clumps 3+ /HPF 06/10/21 00:30 Amorphous Crystals Few 06/10/21 00:30 Urine Mucus Few /HPF 06/10/21 00:30 Microbiology: Microbiology 06/09/21 21:35 Peripheral/Venous Blood Culture - Preliminary Culture in Progress 06/09/21 21:37 Peripheral/Venous Blood Culture - Preliminary Culture in Progress Active Medications - Current Medications Current Medications: Generic Name Dose Route Start Last Admin Trade Name Freq PRN Reason Stop Dose Admin Acetaminophen 650 mg 06/10/21 02:20 06/10/21 06:39 Acetaminophen 325 Mg Tab PO 650 mg Q4H PRN Administration Pain MILD(1-3)/Fever >100.5/RENNER Famotidine 10 mg 06/10/21 10:00 06/10/21 09:57 Famotidine 10 Mg Tab PO 10 mg BID NELIDA Administration Heparin Sodium (Porcine) 5,000 unit 06/10/21 10:00 06/10/21 09:57 Heparin 5,000 Unit/1 Ml Vial SUB-Q 5,000 unit Q12HR NELIDA Administration Hydromorphone HCl 0.5 mg 06/10/21 02:20 Hydromorphone 1 Mg/1 Ml Inj IV Q3H PRN Pain , Severe (7-10) Sodium Chloride 1,000 mls @ 125 mls/hr 06/10/21 02:30 06/10/21 04:20 Nacl 0.9% 1000 Ml IV 125 mls/hr DIRECT NELIDA Administration Cefepime HCl 1 gm in 100 mls @ 200 mls/hr 06/10/21 10:00 06/10/21 09:57 Cefepime/Ns 1 Gm/100 Ml IV 200 mls/hr Q12H NELIDA Administration Protocol Vancomycin HCl 1 gm in 250 mls @ 166.667 mls/hr 06/10/21 22:00 Vancomycin/Ns 1 Gm/250 Ml IV Q24H NELIDA Morphine Sulfate 2 mg 06/10/21 02:20 Morphine 2 Mg/1 Ml Inj IV Q4H PRN Pain, Moderate (4-6) Ondansetron HCl 4 mg 06/10/21 02:20 Ondansetron 4 Mg/2 Ml Inj IV Q8H PRN Nausea And Vomiting Sodium Chloride 10 ml 06/10/21 10:00 06/10/21 09:58 Sodium Chloride 0.9% 10 Ml Flush Syringe IV 10 ml BID NELIDA Administration Sodium Chloride 10 ml 06/10/21 02:20 Sodium Chloride 0.9% 10 Ml Flush Syringe IV PRN PRN LINE FLUSH Nutrition/Malnutrition Assess - Dietary Evaluation Nutrition/Malnutrition Findings: Nutrition Notes Start: 06/10/21 09:51 Freq: Status: Active Protocol: Document 06/10/21 09:51 NICOLE (Rec: 06/10/21 10:02 [email or web address] [id number]) Nutrition Notes Need for Assessment generated from: MD Order,field application engineer,MST Initial or Follow up Assessment Current Diagnosis Acute Kidney Injury,Decubitus( Pressure Ulcer),Sepsis, Hypertension,Stroke, Hyperlipidemia Other Pertinent Diagnosis Infected decubitus ulcer, Acute metabolic encephalopathy , bilat LL pneu Current Diet No diet ordered Labs/Tests (06/09) BUN 53 Cr 1.4 Elevated LFTs K 4.5 Pertinent Medications NS at 125ml/hr Height 5 ft 4 in Weight 60.5 kg [place] Body Weight (kg) 54.54 BMI 22.8 Weight Status Appropriate Subjective/Other Information RD consulted for TF. Pt also screened for malnutrition risk , skin risk (Jc scale: 11) , chewing and swallowing difficulty and hx of receiving NTR support (she has a PEG tube). Pt from a NM. Burn Absent Trauma Absent Difficulty In Swallowing,Chewing Skin Integrity/Comment Infected Stage 4 sacral ulcer Minimum of two criteria No Fluid Accumulation Mild (non-severe) #1 Nutrition Diagnosis Inadequate oral intake Etiology dysphagia As Evidenced by Signs and Symptoms pt NPO Is patient on ventilator? No Is Patient Ambulatory and/or Out of Bed No REE-(Geary-St. Jeor-confined to bed) 4502.948 Calculation Used for Recommendations Geary-St Jeor Additional Notes Pro needs 0.8-1.2g/k-73g/ day Fluid needs 1ml/kcal Nutrition Intervention Nutrition Support: Nepro at 30ml/hr with 130ml water flush q4h. Kcal 1,296 Protein (gm) 58 Carbohydrates (gm) 116 Fat (gm) 69 Fluid (mL) 523 Fiber (gm) 9 Goal #1 TF tolerance Goal #2 TF to meet at least 75% energy and pro needs Goal #3 Wound healing Anticipated Discharge Needs: Continue EN support Follow-Up By: 06/13/21 Additional Comments F/U: new TF, renal function
--- NOTE | 2021-06-10 14:18 | Consultation ---
History of Present Illness - Reason for Consult Consult date: 06/10/21 - History of Present Illness 61-year-old female past medical history CVA with right-sided dysphagia, hemiparesis, hypertension, CKD, COVID-19, chronic sacral pressure ulcer, failure to thrive, numerous other issues to resides at care home facility presented to hospital with fever and hypotension. She is nonverbal at baseline. She is well-known to us from previous visits, most recently August 2020 when she was seen due to COVID-19 and UTI. Febrile to 102.5 with a white count of 22, EGFR 47, blood cultures no growth so far. Currently on cefepime, vancomycin. Urine without evidence of infection. Imaging personally reviewed: Chest CT: Lower lobe atelectasis CT abdomen pelvis: Large ulceration overlying the sacrum extends to the bone similar to previous. Past History Past Medical History: hypertension, renal failure, stroke, other (hronic kidney disease, venous thrombolic embolism, gastrostomy, dementia, COVID-19, stage IV sacral decubitus ulcer, septic shock, failure to thrive, UTI, hyperlipidemia, major affective disorder, anxiety disorder, constipation, anemia, rhinitis ) Past Surgical History: No surgical history Social history: no significant social history Family history: hypertension Medications and Allergies Allergies Allergy/AdvReac Type Severity Reaction Status Date / Time adhesive tape AdvReac Unknown Verified 06/10/21 06:42 lisinopril AdvReac Unknown Verified 06/10/21 06:42 Home Medications Medication Instructions Recorded Confirmed Last Taken Type Acetaminophen [Acetaminophen 650 mg DC Q6H PRN supp.rect 06/02/20 09/04/20 Unknown Rx SUPPOS] Aspirin EC [Halfprin EC] 81 mg FEEDTUBE QDAY 07/21/20 09/04/20 Unknown History Atorvastatin [Lipitor] 80 mg FEEDTUBE QDAY 07/21/20 09/04/20 Unknown History Baclofen 5 mg FEEDTUBE TID 07/21/20 09/04/20 Unknown History Ferrous Sulfate 7.5 mg FEEDTUBE QDAY 07/21/20 09/04/20 Unknown History Losartan Potassium 50 mg FEEDTUBE QDAY 07/21/20 09/04/20 Unknown History Sertraline [Zoloft] 100 mg FEEDTUBE QDAY 07/21/20 09/04/20 Unknown History carvediloL [Coreg] 6.25 mg FEEDTUBE BID 07/21/20 09/04/20 Unknown History cloNIDine-TTS PATCH [Catapres-Tts 1 patch TD 1XW 07/21/20 09/04/20 Unknown History 0.3mg Patch] donepeziL [Aricept] 10 mg FEEDTUBE QDAY 07/21/20 09/04/20 Unknown History levETIRAcetam [Keppra] 100 mg PO Q12HR 07/21/20 09/04/20 Unknown History Furosemide [Lasix TAB] 40 mg PO QDAY #30 tablet 07/29/20 09/04/20 Unknown Rx amLODIPine 2.5 mg PO QDAY #30 tablet 07/29/20 09/04/20 Unknown Rx ALBUTEROL NEB's [Proventil 0.083% 2.5 mg IH Q4HRT PRN nebu 09/04/20 Unknown Rx NEBS] Ascorbic Acid [Vitamin C] 500 mg PO BID tablet 09/04/20 Unknown Rx Cholecalciferol (Vitamin D3) 5,000 unit PO DAILY tablet 09/04/20 Unknown Rx [Vitamin D3] Famotidine [Pepcid] 20 mg PO QAM tablet 09/04/20 Unknown Rx Lipase/Protease/Amylase [Pancreaze 1 each FEEDTUBE PRN PRN capsule 09/04/20 Unknown Rx 10,500 Unit] Zinc Sulfate 220 mg PO BID capsule 09/04/20 Unknown Rx amLODIPine 5 mg FEEDTUBE QDAY tablet 09/04/20 Unknown Rx carvediloL [Coreg] 12.5 mg FEEDTUBE DAILY tablet 09/04/20 Unknown Rx levoFLOXacin [Levaquin TAB] 750 mg PO QDAY #3 tablet 09/04/20 09/04/20 Unknown Rx Active Meds: Active Medications Acetaminophen (Acetaminophen 325 Mg Tab) 650 mg PO Q4H PRN PRN Reason: Pain MILD(1-3)/Fever >100.5/RENNER Last Admin: 06/10/21 06:39 Dose: 650 mg Famotidine (Famotidine 10 Mg Tab) 10 mg PO BID [facility] Last Admin: 06/10/21 09:57 Dose: 10 mg Heparin Sodium (Porcine) (Heparin 5,000 Unit/1 Ml Vial) 5,000 unit SUB-Q Q12HR [facility] Last Admin: 06/10/21 09:57 Dose: 5,000 unit Hydromorphone HCl (Hydromorphone 1 Mg/1 Ml Inj) 0.5 mg IV Q3H PRN PRN Reason: Pain , Severe (7-10) Sodium Chloride (Nacl 0.9% 1000 Ml) 1,000 mls @ 125 mls/hr IV DIRECT NELIDA Last Admin: 06/10/21 04:20 Dose: 125 mls/hr Cefepime HCl (Cefepime/Ns 1 Gm/100 Ml) 1 gm in 100 mls @ 200 mls/hr IV Q12H NELIDA; Protocol Last Admin: 06/10/21 09:57 Dose: 200 mls/hr Vancomycin HCl (Vancomycin/Ns 1 Gm/250 Ml) 1 gm in 250 mls @ 166.667 mls/hr IV Q24H NLEIDA Morphine Sulfate (Morphine 2 Mg/1 Ml Inj) 2 mg IV Q4H PRN PRN Reason: Pain, Moderate (4-6) Ondansetron HCl (Ondansetron 4 Mg/2 Ml Inj) 4 mg IV Q8H PRN PRN Reason: Nausea And Vomiting Sodium Chloride (Sodium Chloride 0.9% 10 Ml Flush Syringe) 10 ml IV BID NELIDA Last Admin: 06/10/21 09:58 Dose: 10 ml Sodium Chloride (Sodium Chloride 0.9% 10 Ml Flush Syringe) 10 ml IV PRN PRN PRN Reason: LINE FLUSH Review of Systems ROS unobtainable: due to mental status Physical Examination - Physical Exam Narrative exam: Physical exam deferred to reduce risk of transmission of COVID-19. Please refer to primary team's note. - Constitutional Vitals: Vital Signs Temp Pulse Resp BP Pulse Ox 97.9 F 63 19 105/71 100 06/10/21 12:00 06/10/21 13:21 06/10/21 13:21 06/10/21 13:21 06/10/21 13:21 Temperature -Last 24 Hours Temperature 97.9 F Temperature 98.9 F Temperature 102.7 F Temperature 102.2 F Temperature 101.9 F Temperature 102.5 F Results - Labs CBC & Chem 7: 06/09/21 21:35 06/09/21 21:35 Labs: Abnormal lab results 06/09/21 06/09/21 06/09/21 Range/Units 21:35 21:35 23:16 WBC 21.2 H (4.5-11.0) K/mm3 RBC 2.63 L (3.65-5.03) M/mm3 Hgb 7.4 L (10.1-14.3) gm/dl Hct 22.8 L (30.3-42.9) % RDW 16.5 H (13.2-15.2) % Seg Neuts % (Manual) 83 H (40.0-70.0) % Lymphocytes % (Manual) 12 L (13.4-35.0) % BUN 53 H (7-17) mg/dL Creatinine 1.4 H (0.6-1.2) mg/dL Glucose 145 H (65-100) mg/dL POC Glucose (70-105) mg/dL Lactic Acid 3.40 H* (0.7-2.0) mmol/L AST 336 H (5-40) units/L ALT 330 H (7-56) units/L Alkaline Phosphatase 208 H (35-129) units/L Albumin 2.2 L (3.9-5) g/dL 06/10/21 Range/Units 05:28 WBC (4.5-11.0) K/mm3 RBC (3.65-5.03) M/mm3 Hgb (10.1-14.3) gm/dl Hct (30.3-42.9) % RDW (13.2-15.2) % Seg Neuts % (Manual) (40.0-70.0) % Lymphocytes % (Manual) (13.4-35.0) % BUN (7-17) mg/dL Creatinine (0.6-1.2) mg/dL Glucose (65-100) mg/dL POC Glucose 116 H (70-105) mg/dL Lactic Acid (0.7-2.0) mmol/L AST (5-40) units/L ALT (7-56) units/L Alkaline Phosphatase (35-129) units/L Albumin (3.9-5) g/dL Assessment and Plan Cultures: Blood culture no growth so far A/P: 61-year-old female past medical history CVA with right-sided dysphagia, hemiparesis, hypertension, CKD, COVID-19, chronic sacral pressure ulcer, failure to thrive, numerous other issues #Acute sepsis: With fevers and leukocytosis. Likely secondary to infected chronic sacral decubitus ulcer. #Chronic sacral pressure ulcer: Likely extends down to bone. Given she is nonverbal and has hemiparesis, and a bone infection is likely untreatable at this point. We'll continue to treat soft tissue infections as they arise. #CKD: Renally dose medications #Nonverbal status: Secondary to history of CVA. Recs: -Agree with empiric vancomycin goal trough 10-20, cefepime. -Follow-up blood cultures -Wound care and obtain wound cultures of sacral wound. -Obtain CRP Thank you for the consult, we will continue to follow. Giuliana Pineda MD [facility] O: [phone] F: [phone]
[2021-06-10] MEDS: NYSTATIN 500,000 UNIT/5 ML ORAL LIQD PO SCH (21:39)
[2021-06-10] MEDS: VANCOMYCIN/NS 1 GM/250 ML 1 GM/250 ML BAG IV SCH (23:13)
[2021-06-11 05:12] LABS: Hematocrit 23.8 % (30.3-42.9); Hemoglobin 7.5 gm/dl (10.1-14.3); Mean Corpuscular HGB Conc 32 % (30-34); Mean Corpuscular Volume 87 fl (79-97); Platelet Count 263 K/mm3 (140-440); Red Blood Count 2.74 M/mm3 (3.65-5.03); Red Cell Distribution Width 16.5 % (13.2-15.2)
[2021-06-11 05:28] LABS: BUN/Creatinine Ratio 45; Blood Urea Nitrogen 49 mg/dL (7-17); Calcium 8.6 mg/dL (8.4-10.2); Hemolysis Index 0
[2021-06-11 06:11] LABS: Anisocytosis 1+; Basophils % (Manual) 0 % (0.0-1.8); Eosinophils % (Manual) 0.5 % (0.0-4.3); Platelet Estimate Consistent w Auto; Total Cells Counted 200
--- NOTE | 2021-06-11 07:54 | Progress Note ---
Assessment and Plan Assessment and plan: History of present illness: 61-year-old female with history of CVA with resultant dysphagia right-sided hemiparesis, CVA, hypertension, chronic kidney disease, venous thrombolic embolism, gastrostomy, dementia, COVID-19, stage IV sacral decubitus ulcer, septic shock, failure to thrive, UTI, hyperlipidemia, major affective disorder, anxiety disorder, constipation, anemia, rhinitis who presents from [facility] facility for fever 102.5 F and patient is hypotensive 88/ 54. Patient is nonverbal at baseline. Admitted to [facility] for Severe Sepsis 2/2 to decubitus ulcer and UTI. Hospital Course: 06/10: Continue empiric abx, will follow ID input. BLood pressure and lactic acid downtrending improved, continue fluid resuscitation. Will follow culture data. COVID PCR is negative. 06/11: Improved clinical status. Alert on my encounter, nonverbal so comfort difficult to asses. Osteo wound appears chronic, treatment not currenlty indicat ed per ID. Will follow antibiotics recs. Currently treating UTI and possible cellulitic rash on thighs. Anticipate return to [facility] early next week, Mon/Tu. Patient's son was called and updated on her progress. Assessment and Plan: # Severe Sepsis POA (improved) Current Visit: Yes Status: Acute Plan to address problem: WBC of 21.2, hemoglobin of 7.4 hematocrit 22.8, BUN of 53 creatinine 1.4 and lactic acid 3.40, Normal saline at the rate of 125 cc/h. Cefepime 1 g IV every 8 hours. Vancomycin 1 g IV every 12 hours. Will consult infectious disease for evaluation. blood culture wound culture. COVID PCR Negative. MRSA swab Wound care evaluation. Recheck CBC BMP in the morning Not currently on pressors. # Complicated UTI (urinary tract infection) Current Visit: Yes Status: Acute Plan to address problem: - Elevated WBC on UA, UCx sent - Patient is on cefepime 1 g IV every 8 hours and. Vancomycin 1 g IV every 12 hours # Cellulitis on bilateral thighs Current Visit: Yes Status: Acute Plan to address problem: - Appears to have cellulitis on thighs based on images - Abx as above. - Aguilera ordered. # Decubitus ulcer, stage 4 with infection Current Visit: Yes Status: Acute Plan to address problem: - Cefepime 1 g IV every 8 hours. Vancomycin 1 g IV every 12 hours. Will consult infectious disease for evaluation. We do the blood culture wound culture. Wound care evaluation. Recheck CBC BMP in the morning - CT scan of the abdomen pelvis showed large ulceration overlying the sacrum with left gluteal decubitus ulceration. These extend to the level of the sacrum and there is mild sclerosis and ileal irregularity within the sacrum. Osteomyelitis is not excluded #2 lower lobe atelectasis infiltrate with trace effusion. - Appears to have chronic osteomyelitis and untreatable per ID - ID following # Acute kidney injury due to vasomotor nephropathy Current Visit: Yes Status: Acute Plan to address problem: Avoid nephrotoxic drug. Renally dose medication. Normal saline at the rate of 125 cc/h. Recheck BMP in the morning BUN of 53 creatinine 1.4 # Pneumonia of both lower lobes Current Visit: No Status: Acute Plan to address problem: Noted on CTAP. Suspected pneumonia. Oxygen via nasal cannula 2 L/min DuoNebs Normal saline at the rate of 125 cc/h. Cefepime 1 g IV every 8 hours. Vancomycin 1 g IV every 12 hours. Will consult infectious disease for evaluation. Sputum cx. # Nonverbal status Current Visit: No Status: Chronic Plan to address problem: Prior CVA, nonverbal at baseline. hemiplegia. non verbal. # DVT prophylaxis Current Visit: No Status: Acute Plan to address problem: Heparin 5000 unit SQ every 12 hours for DVT prophylaxis. Pepcid 20 mg p.o. twice daily for GI prophylaxis. Patient is a full code #Advance care planning Disease education conducted, care plan discussed, diagnoses discussed, prognosis discussed, patient is full code, patient acknowledges understanding and agree with care plan, +30 minutes. The high probability of a clinically significant, sudden or life threatening deterioration of the [ID, pulm] system(s) required my full and direct attention, intervention and personal management. The aggregate critical care time was [60] minutes. This time is in addition to time spent performing reported procedures but includes the following: [x] Data Review and interpretation [x] Patient assessment and monitoring of vital signs [x] Documentation [x] Medication orders and management History Interval history: Altered, unable to obtain history on exam. Vitals improved. MAP > 65. no pressors required. patient does not appear to be in any distress. Hospitalist Physical - Physical exam Narrative exam: General appearance: Present: no acute distress, well-nourished - EENT Eyes: Present: PERRL ENT: hearing intact, clear oral mucosa - Neck Neck: Present: supple, normal ROM - Respiratory Respiratory effort: normal Respiratory: bilateral: diminished - Cardiovascular Heart Sounds: Present: S1 & S2. Absent: rub, click - Extremities Extremities: pulses symmetrical, No edema Peripheral Pulses: within normal limits - Abdominal General gastrointestinal: Present: soft, non-tender, non-distended, normal bowel sounds, other (Gastrostomy tube present) Female genitourinary: Present: normal - Integumentary Integumentary: Present: clear, warm, dry - Musculoskeletal Musculoskeletal: gait normal, strength equal bilaterally - Psychiatric Psychiatric: (Patient is lethargic) - Neurologic Neurologic: (Patient is lethargic) - Additional findings Additional findings: Skin warm, dry, normal color, erythema (Erythema extends into the thighs and gluteus), other (Large stage IV sacral decubitus ulcer with eschar and purulence surrounding erythema and excoriation.). Absent: rash - Constitutional Vitals: Temp Pulse Resp BP Pulse Ox 98.2 F 70 28 H 123/83 100 06/11/21 04:02 06/11/21 05:26 06/11/21 05:26 06/11/21 05:21 06/11/21 05:26 General appearance: Present: no acute distress, well-nourished Results - Labs CBC & Chem 7: 06/11/21 04:00 06/11/21 04:17 Labs: Laboratory Last Values WBC 22.5 K/mm3 (4.5-11.0) H 06/11/21 04:00 RBC 2.74 M/mm3 (3.65-5.03) L 06/11/21 04:00 Hgb 7.5 gm/dl (10.1-14.3) L 06/11/21 04:00 Hct 23.8 % (30.3-42.9) L 06/11/21 04:00 MCV 87 fl (79-97) 06/11/21 04:00 MCH 28 pg (28-32) 06/11/21 04:00 MCHC 32 % (30-34) 06/11/21 04:00 RDW 16.5 % (13.2-15.2) H 06/11/21 04:00 Plt Count 263 K/mm3 (140-440) 06/11/21 04:00 [place] % (Auto) Live In Caregiver 06/09/21 21:35 Eos % (Auto) Live In Caregiver 06/09/21 21:35 Baso % (Auto) Live In Caregiver 06/09/21 21:35 Lymph # (Auto) Live In Caregiver 06/09/21 21:35 [place] # (Auto) Live In Caregiver 06/09/21 21:35 Eos # (Auto) Live In Caregiver 06/09/21 21:35 Baso # (Auto) Live In Caregiver 06/09/21 21:35 Add Manual Diff Complete 06/11/21 04:00 Total Counted 200 06/11/21 04:00 Seg Neuts % (Manual) 95.0 % (40.0-70.0) H 06/11/21 04:00 Band Neutrophils % 0 % 06/11/21 04:00 Lymphocytes % (Manual) 2.5 % (13.4-35.0) L 06/11/21 04:00 Reactive Lymphs % (Man) 0 % 06/11/21 04:00 Monocytes % (Manual) 2.0 % (0.0-7.3) 06/11/21 04:00 Eosinophils % (Manual) 0.5 % (0.0-4.3) 06/11/21 04:00 Basophils % (Manual) 0 % (0.0-1.8) 06/11/21 04:00 Metamyelocytes % 0 % 06/11/21 04:00 Myelocytes % 0 % 06/11/21 04:00 Promyelocytes % 0 % 06/11/21 04:00 Blast Cells % 0 % 06/11/21 04:00 Nucleated RBC % Not Reportable 06/11/21 04:00 Seg Neutrophils # Live In Caregiver 06/09/21 21:35 Seg Neutrophils # Man 21.4 K/mm3 (1.8-7.7) H 06/11/21 04:00 Band Neutrophils # 0.0 K/mm3 06/11/21 04:00 Lymphocytes # (Manual) 0.6 K/mm3 (1.2-5.4) L 06/11/21 04:00 Abs React Lymphs (Man) 0.0 K/mm3 06/11/21 04:00 Monocytes # (Manual) 0.5 K/mm3 (0.0-0.8) 06/11/21 04:00 Eosinophils # (Manual) 0.1 K/mm3 (0.0-0.4) 06/11/21 04:00 Basophils # (Manual) 0.0 K/mm3 (0.0-0.1) 06/11/21 04:00 Metamyelocytes # 0.0 K/mm3 06/11/21 04:00 Myelocytes # 0.0 K/mm3 06/11/21 04:00 Promyelocytes # 0.0 K/mm3 06/11/21 04:00 Blast Cells # 0.0 K/mm3 06/11/21 04:00 WBC Morphology Not Reportable 06/11/21 04:00 Hypersegmented Neuts Not Reportable 06/11/21 04:00 Hyposegmented Neuts Not Reportable 06/11/21 04:00 Hypogranular Neuts Not Reportable 06/11/21 04:00 Smudge Cells Not Reportable 06/11/21 04:00 Toxic Granulation Not Reportable 06/11/21 04:00 Toxic Vacuolation Not Reportable 06/11/21 04:00 Dohle Bodies Not Reportable 06/11/21 04:00 Pelger-Huet Anomaly Not Reportable 06/11/21 04:00 Diana Rods Not Reportable 06/11/21 04:00 Platelet Estimate Consistent w auto 06/11/21 04:00 Clumped Platelets Not Reportable 06/11/21 04:00 Plt Clumps, EDTA Not Reportable 06/11/21 04:00 Large Platelets Not Reportable 06/11/21 04:00 Giant Platelets Not Reportable 06/11/21 04:00 Platelet Satelliting Not Reportable 06/11/21 04:00 Plt Morphology Comment Not Reportable 06/11/21 04:00 RBC Morphology Not Reportable 06/11/21 04:00 Dimorphic RBCs Not Reportable 06/11/21 04:00 Polychromasia Not Reportable 06/11/21 04:00 Hypochromasia Not Reportable 06/11/21 04:00 Poikilocytosis Not Reportable 06/11/21 04:00 Anisocytosis 1+ 06/11/21 04:00 Microcytosis Not Reportable 06/11/21 04:00 Macrocytosis Not Reportable 06/11/21 04:00 Spherocytes Not Reportable 06/11/21 04:00 Pappenheimer Bodies Not Reportable 06/11/21 04:00 Sickle Cells Not Reportable 06/11/21 04:00 Target Cells Not Reportable 06/11/21 04:00 Tear Drop Cells Not Reportable 06/11/21 04:00 Ovalocytes Not Reportable 06/11/21 04:00 Helmet Cells Not Reportable 06/11/21 04:00 Nicholas-[place] Bodies Not Reportable 06/11/21 04:00 [place] Rings Not Reportable 06/11/21 04:00 [place] Cells Not Reportable 06/11/21 04:00 Bite Cells Not Reportable 06/11/21 04:00 Crenated Cell Not Reportable 06/11/21 04:00 Elliptocytes Not Reportable 06/11/21 04:00 Acanthocytes (Spur) Not Reportable 06/11/21 04:00 Rouleaux Not Reportable 06/11/21 04:00 Hemoglobin C Crystals Not Reportable 06/11/21 04:00 Schistocytes Not Reportable 06/11/21 04:00 Malaria parasites Not Reportable 06/11/21 04:00 Juan Miguel Bodies Not Reportable 06/11/21 04:00 Hem Pathologist Commnt No 06/11/21 04:00 Sodium 136 mmol/L (137-145) L 06/11/21 04:17 Potassium 3.7 mmol/L (3.6-5.0) 06/11/21 04:17 Chloride 107.4 mmol/L (98-107) H 06/11/21 04:17 Carbon Dioxide 23 mmol/L (22-30) 06/11/21 04:17 Anion Gap 9 mmol/L 06/11/21 04:17 BUN 49 mg/dL (7-17) H 06/11/21 04:17 Creatinine 1.1 mg/dL (0.6-1.2) 06/11/21 04:17 Estimated GFR > 60 ml/min 06/11/21 04:17 BUN/Creatinine Ratio 45 % 06/11/21 04:17 Glucose 137 mg/dL (65-100) H 06/11/21 04:17 POC Glucose 116 mg/dL (70-105) H 06/10/21 05:28 Lactic Acid 1.90 mmol/L (0.7-2.0) 06/10/21 02:46 Calcium 8.6 mg/dL (8.4-10.2) 06/11/21 04:17 Total Bilirubin 1.20 mg/dL (0.1-1.2) 06/09/21 21:35 AST 336 units/L (5-40) H 06/09/21 21:35 ALT 330 units/L (7-56) H 06/09/21 21:35 Alkaline Phosphatase 208 units/L (35-129) H 06/09/21 21:35 C-Reactive Protein 34.10 mg/dL (0.00-1.30) H 06/11/21 04:17 Total Protein 7.9 g/dL (6.3-8.2) 06/09/21 21:35 Albumin 2.2 g/dL (3.9-5) L 06/09/21 21:35 Albumin/Globulin Ratio 0.4 % 06/09/21 21:35 Urine Color [place] (Yellow) 06/10/21 00:30 Urine Turbidity Cloudy (Clear) 06/10/21 00:30 Urine pH 6.0 (5.0-7.0) 06/10/21 00:30 Ur Specific [place] 1.019 (1.003-1.030) 06/10/21 00:30 Urine Protein <15 mg/dl mg/dL (Negative) 06/10/21 00:30 Urine Glucose (UA) Neg mg/dL (Negative) 06/10/21 00:30 Urine Ketones Neg mg/dL (Negative) 06/10/21 00:30 Urine Blood Neg (Negative) 06/10/21 00:30 Urine Nitrite Neg (Negative) 06/10/21 00:30 Urine Bilirubin Neg (Negative) 06/10/21 00:30 Urine Urobilinogen 2.0 mg/dL (<2.0) 06/10/21 00:30 Ur Leukocyte Esterase Lg (Negative) 06/10/21 00:30 Urine WBC (Auto) < 1.0 /HPF (0.0-6.0) 06/10/21 00:30 Urine RBC (Auto) 6.0 /HPF (0.0-6.0) 06/10/21 00:30 U Epithel Cells (Auto) < 1.0 /HPF (0-13.0) 06/10/21 00:30 Urine WBC Clumps 3+ /HPF 06/10/21 00:30 Amorphous Crystals Few 06/10/21 00:30 Urine Mucus Few /HPF 06/10/21 00:30 Coronavirus (PCR) Negative (Negative) 06/10/21 Unknown Microbiology: Microbiology 06/09/21 21:35 Peripheral/Venous Blood Culture - Preliminary NO GROWTH AFTER 24 HOURS 06/09/21 21:37 Peripheral/Venous Blood Culture - Preliminary NO GROWTH AFTER 24 HOURS Active Medications - Current Medications Current Medications: Generic Name Dose Route Start Last Admin Trade Name Freq PRN Reason Stop Dose Admin Acetaminophen 650 mg 06/10/21 02:20 06/10/21 21:40 Acetaminophen 325 Mg Tab PO 650 mg Q4H PRN Administration Pain MILD(1-3)/Fever >100.5/RENNER Famotidine 10 mg 06/10/21 10:00 06/10/21 21:39 Famotidine 10 Mg Tab PO 10 mg BID NELIDA Administration Heparin Sodium (Porcine) 5,000 unit 06/10/21 10:00 06/10/21 21:39 Heparin 5,000 Unit/1 Ml Vial SUB-Q 5,000 unit Q12HR NELIDA Administration Hydromorphone HCl 0.5 mg 06/10/21 02:20 Hydromorphone 1 Mg/1 Ml Inj IV Q3H PRN Pain , Severe (7-10) Sodium Chloride 1,000 mls @ 125 mls/hr 06/10/21 02:30 06/10/21 21:38 Nacl 0.9% 1000 Ml IV 125 mls/hr DIRECT NELIDA Administration Cefepime HCl 1 gm in 100 mls @ 200 mls/hr 06/10/21 10:00 06/10/21 21:38 Cefepime/Ns 1 Gm/100 Ml IV 200 mls/hr Q12H NELIDA Administration Protocol Vancomycin HCl 1 gm in 250 mls @ 166.667 mls/hr 06/10/21 22:00 06/10/21 23:13 Vancomycin/Ns 1 Gm/250 Ml IV 166.667 mls/hr Q24H NELIDA Administration Morphine Sulfate 2 mg 06/10/21 02:20 Morphine 2 Mg/1 Ml Inj IV Q4H PRN Pain, Moderate (4-6) Nystatin 100,000 unit 06/10/21 22:00 06/10/21 21:39 Nystatin 500,000 Unit/5 Ml Oral Liqd PO 100,000 unit QID NELIDA Administration Ondansetron HCl 4 mg 06/10/21 02:20 Ondansetron 4 Mg/2 Ml Inj IV Q8H PRN Nausea And Vomiting Sodium Chloride 10 ml 06/10/21 10:00 06/10/21 21:39 Sodium Chloride 0.9% 10 Ml Flush Syringe IV 10 ml BID NELIDA Administration Sodium Chloride 10 ml 06/10/21 02:20 Sodium Chloride 0.9% 10 Ml Flush Syringe IV PRN PRN LINE FLUSH Nutrition/Malnutrition Assess - Dietary Evaluation Nutrition/Malnutrition Findings: Nutrition Notes Start: 06/10/21 09:51 Freq: Status: Active Protocol: Document 06/10/21 09:51 NICOLE (Rec: 06/10/21 10:02 NICOLE [id number]) Nutrition Notes Need for Assessment generated from: MD Order,tube builder,MST Initial or Follow up Assessment Current Diagnosis Acute Kidney Injury,Decubitus( Pressure Ulcer),Sepsis, Hypertension,Stroke, Hyperlipidemia Other Pertinent Diagnosis Infected decubitus ulcer, Acute metabolic encephalopathy , bilat LL pneu Current Diet No diet ordered Labs/Tests (06/09) BUN 53 Cr 1.4 Elevated LFTs K 4.5 Pertinent Medications NS at 125ml/hr Height 5 ft 4 in Weight 60.5 kg [place] Body Weight (kg) 54.54 BMI 22.8 Weight Status Appropriate Subjective/Other Information RD consulted for TF. Pt also screened for malnutrition risk , skin risk (Jc scale: 11) , chewing and swallowing difficulty and hx of receiving NTR support (she has a PEG tube). Pt from a [place]. Burn Absent Trauma Absent Difficulty In Swallowing,Chewing Skin Integrity/Comment Infected Stage 4 sacral ulcer Minimum of two criteria No Fluid Accumulation Mild (non-severe) #1 Nutrition Diagnosis Inadequate oral intake Etiology dysphagia As Evidenced by Signs and Symptoms pt NPO Is patient on ventilator? No Is Patient Ambulatory and/or Out of Bed No REE-([place]-St. Jeor-confined to bed) 0572.155 Calculation Used for Recommendations [place]-St Jeor Additional Notes Pro needs 0.8-1.2g/k-73g/ day Fluid needs 1ml/kcal Nutrition Intervention Nutrition Support: Nepro at 30ml/hr with 130ml water flush q4h. Kcal 1,296 Protein (gm) 58 Carbohydrates (gm) 116 Fat (gm) 69 Fluid (mL) 523 Fiber (gm) 9 Goal #1 TF tolerance Goal #2 TF to meet at least 75% energy and pro needs Goal #3 Wound healing Anticipated Discharge Needs: Continue EN support Follow-Up By: 06/13/21 Additional Comments F/U: new TF, renal function
[2021-06-11] MEDS: CEFEPIME/NS 1 GM/100 ML 1 GM/100 ML BAG IV SCH ×2 (09:31→22:15)
[2021-06-11] MEDS: FAMOTIDINE 10 MG TAB PO SCH ×2 (09:33→23:06)
[2021-06-11] MEDS: HEPARIN 5,000 UNIT/1 ML VIAL SUB-Q SCH ×2 (09:33→22:15)
[2021-06-11] MEDS: NYSTATIN 500,000 UNIT/5 ML ORAL LIQD PO SCH ×4 (09:36→22:14)
[2021-06-11] MEDS: SODIUM CHLORIDE 0.9% 1000 ML 1,000 ML IV SCH ×2 (09:37→18:00)
[2021-06-11] MEDS: MORPHINE 2 MG/1 ML INJ IV PRN ×2 (15:28→23:11)
[2021-06-11] MEDS: VANCOMYCIN/NS 1 GM/250 ML 1 GM/250 ML BAG IV SCH (22:15)
[2021-06-12] MEDS: SODIUM CHLORIDE 0.9% 1000 ML 1,000 ML IV SCH ×3 (01:43→19:03)
[2021-06-12] MEDS: NYSTATIN 500,000 UNIT/5 ML ORAL LIQD PO SCH ×4 (09:10→23:17)
[2021-06-12] MEDS: FAMOTIDINE 10 MG TAB PO SCH ×2 (09:11→23:16)
[2021-06-12] MEDS: HEPARIN 5,000 UNIT/1 ML VIAL SUB-Q SCH ×2 (09:11→23:17)
[2021-06-12] MEDS: CEFEPIME/NS 1 GM/100 ML 1 GM/100 ML BAG IV SCH (09:17)
[2021-06-12] MEDS: MORPHINE 2 MG/1 ML INJ IV PRN ×2 (09:24→23:17)
--- NOTE | 2021-06-12 11:11 | Progress Note ---
Assessment and Plan Assessment and plan: History of present illness: 61-year-old female with history of CVA with resultant dysphagia right-sided hemiparesis, CVA, hypertension, chronic kidney disease, venous thrombolic embolism, gastrostomy, dementia, COVID-19, stage IV sacral decubitus ulcer, septic shock, failure to thrive, UTI, hyperlipidemia, major affective disorder, anxiety disorder, constipation, anemia, rhinitis who presents from [facility] half-way facility for fever 102.5 F and patient is hypotensive 88/ 54. Patient is nonverbal at baseline. Admitted to [facility] for Severe Sepsis 2/2 to decubitus ulcer and UTI. Hospital Course: 06/10: Continue empiric abx, will follow ID input. BLood pressure and lactic acid downtrending improved, continue fluid resuscitation. Will follow culture data. COVID PCR is negative. 06/11: Improved clinical status. Alert on my encounter, nonverbal so comfort difficult to asses. Osteo wound appears chronic, treatment not currenlty indicat ed per ID. Will follow antibiotics recs. Currently treating UTI and possible cellulitic rash on thighs. Anticipate return to [facility] early next week, Mon/. Patient's son was called and updated on her progress. 06/12: urine culture growing K. Pneumonia. D/c cefepime/vanco. Started merrem IV. will follow ID recs. Assessment and Plan: # Severe Sepsis POA (improved) Current Visit: Yes Status: Acute Plan to address problem: 2/2 K. Pneumonia UTI WBC of 21.2, hemoglobin of 7.4 hematocrit 22.8, BUN of 53 creatinine 1.4 and lactic acid 3.40, Normal saline at the rate of 125 cc/h. dc Cefepime 1 g IV every 8 hours and Vancomycin 1 g IV every 12 hours. start merrem Will consult infectious disease for evaluation. blood culture wound culture. COVID PCR Negative. MRSA swab Wound care evaluation. Recheck CBC BMP in the morning Not currently on pressors. # Complicated UTI (urinary tract infection) Current Visit: Yes Status: Acute Plan to address problem: - UCX: K. pneumonia UTI - Elevated WBC on UA, UCx sent - dc Patient is on cefepime 1 g IV every 8 hours and. Vancomycin 1 g IV every 12 hours - started Merrem IV - will follow ID recs. # Cellulitis on bilateral thighs Current Visit: Yes Status: Acute Plan to address problem: - Appears to have cellulitis on thighs based on images - Abx as above. - Aguilera ordered. # Decubitus ulcer, stage 4 with infection Current Visit: Yes Status: Acute Plan to address problem: - Cefepime 1 g IV every 8 hours. Vancomycin 1 g IV every 12 hours. Will consult infectious disease for evaluation. We do the blood culture wound culture. Wound care evaluation. Recheck CBC BMP in the morning - CT scan of the abdomen pelvis showed large ulceration overlying the sacrum with left gluteal decubitus ulceration. These extend to the level of the sacrum and there is mild sclerosis and ileal irregularity within the sacrum. Osteomyelitis is not excluded #2 lower lobe atelectasis infiltrate with trace effusion. - Appears to have chronic osteomyelitis and untreatable per ID - ID following # Acute kidney injury due to vasomotor nephropathy Current Visit: Yes Status: Acute Plan to address problem: Avoid nephrotoxic drug. Renally dose medication. Normal saline at the rate of 125 cc/h. Recheck BMP in the morning BUN of 53 creatinine 1.4 # Pneumonia of both lower lobes Current Visit: No Status: Acute Plan to address problem: Noted on CTAP. Suspected pneumonia. Oxygen via nasal cannula 2 L/min DuoNebs Normal saline at the rate of 125 cc/h. Cefepime 1 g IV every 8 hours. Vancomycin 1 g IV every 12 hours. Will consult infectious disease for evaluation. Sputum cx. # Nonverbal status Current Visit: No Status: Chronic Plan to address problem: Prior CVA, nonverbal at baseline. hemiplegia. non verbal. # DVT prophylaxis Current Visit: No Status: Acute Plan to address problem: Heparin 5000 unit SQ every 12 hours for DVT prophylaxis. Pepcid 20 mg p.o. twi ce daily for GI prophylaxis. Patient is a full code #Advance care planning Disease education conducted, care plan discussed, diagnoses discussed, prognosis discussed, patient is full code, patient acknowledges understanding and agree with care plan, +30 minutes. The high probability of a clinically significant, sudden or life threatening deterioration of the [ID, pulm] system(s) required my full and direct attention, intervention and personal management. The aggregate critical care time was [60] minutes. This time is in addition to time spent performing reported procedures but includes the following: [x] Data Review and interpretation [x] Patient assessment and monitoring of vital signs [x] Documentation [x] Medication orders and management History Interval history: Nonverbal. vss. on 2l me Hospitalist Physical - Physical exam Narrative exam: General appearance: Present: no acute distress, well-nourished - EENT Eyes: Present: PERRL ENT: hearing intact, clear oral mucosa - Neck Neck: Present: supple, normal ROM - Respiratory Respiratory effort: normal Respiratory: bilateral: diminished - Cardiovascular Heart Sounds: Present: S1 & S2. Absent: rub, click - Extremities Extremities: pulses symmetrical, No edema Peripheral Pulses: within normal limits - Abdominal General gastrointestinal: Present: soft, non-tender, non-distended, normal bowel sounds, other (Gastrostomy tube present) Female genitourinary: Present: normal - Integumentary Integumentary: Present: clear, warm, dry - Musculoskeletal Musculoskeletal: gait normal, strength equal bilaterally - Psychiatric Psychiatric: (Patient is lethargic) - Neurologic Neurologic: (Patient is lethargic) - Additional findings Additional findings: Skin warm, dry, normal color, erythema (Erythema extends into the thighs and gluteus), other (Large stage IV sacral decubitus ulcer with eschar and purulence surrounding erythema and excoriation.). Absent: rash - Constitutional Vitals: Temp Pulse Resp BP Pulse Ox 98.2 F 78 25 H 133/86 97 06/12/21 08:00 06/11/21 23:40 06/11/21 23:40 06/11/21 23:40 06/12/21 07:46 General appearance: Present: no acute distress, well-nourished Results - Labs CBC & Chem 7: 06/11/21 04:00 06/11/21 04:17 Labs: Laboratory Last Values WBC 22.5 K/mm3 (4.5-11.0) H 06/11/21 04:00 RBC 2.74 M/mm3 (3.65-5.03) L 06/11/21 04:00 Hgb 7.5 gm/dl (10.1-14.3) L 06/11/21 04:00 Hct 23.8 % (30.3-42.9) L 06/11/21 04:00 MCV 87 fl (79-97) 06/11/21 04:00 MCH 28 pg (28-32) 06/11/21 04:00 MCHC 32 % (30-34) 06/11/21 04:00 RDW 16.5 % (13.2-15.2) H 06/11/21 04:00 Plt Count 263 K/mm3 (140-440) 06/11/21 04:00 [place] % (Auto) Business Development Assistant 06/09/21 21:35 Eos % (Auto) Business Development Assistant 06/09/21 21:35 Baso % (Auto) Business Development Assistant 06/09/21 21:35 Lymph # (Auto) Business Development Assistant 06/09/21 21:35 [place] # (Auto) Business Development Assistant 06/09/21 21:35 Eos # (Auto) Business Development Assistant 06/09/21 21:35 Baso # (Auto) Business Development Assistant 06/09/21 21:35 Add Manual Diff Complete 06/11/21 04:00 Total Counted 200 06/11/21 04:00 Seg Neuts % (Manual) 95.0 % (40.0-70.0) H 06/11/21 04:00 Band Neutrophils % 0 % 06/11/21 04:00 Lymphocytes % (Manual) 2.5 % (13.4-35.0) L 06/11/21 04:00 Reactive Lymphs % (Man) 0 % 06/11/21 04:00 Monocytes % (Manual) 2.0 % (0.0-7.3) 06/11/21 04:00 Eosinophils % (Manual) 0.5 % (0.0-4.3) 06/11/21 04:00 Basophils % (Manual) 0 % (0.0-1.8) 06/11/21 04:00 Metamyelocytes % 0 % 06/11/21 04:00 Myelocytes % 0 % 06/11/21 04:00 Promyelocytes % 0 % 06/11/21 04:00 Blast Cells % 0 % 06/11/21 04:00 Nucleated RBC % Not Reportable 06/11/21 04:00 Seg Neutrophils # Business Development Assistant 06/09/21 21:35 Seg Neutrophils # Man 21.4 K/mm3 (1.8-7.7) H 06/11/21 04:00 Band Neutrophils # 0.0 K/mm3 06/11/21 04:00 Lymphocytes # (Manual) 0.6 K/mm3 (1.2-5.4) L 06/11/21 04:00 Abs React Lymphs (Man) 0.0 K/mm3 06/11/21 04:00 Monocytes # (Manual) 0.5 K/mm3 (0.0-0.8) 06/11/21 04:00 Eosinophils # (Manual) 0.1 K/mm3 (0.0-0.4) 06/11/21 04:00 Basophils # (Manual) 0.0 K/mm3 (0.0-0.1) 06/11/21 04:00 Metamyelocytes # 0.0 K/mm3 06/11/21 04:00 Myelocytes # 0.0 K/mm3 06/11/21 04:00 Promyelocytes # 0.0 K/mm3 06/11/21 04:00 Blast Cells # 0.0 K/mm3 06/11/21 04:00 WBC Morphology Not Reportable 06/11/21 04:00 Hypersegmented Neuts Not Reportable 06/11/21 04:00 Hyposegmented Neuts Not Reportable 06/11/21 04:00 Hypogranular Neuts Not Reportable 06/11/21 04:00 Smudge Cells Not Reportable 06/11/21 04:00 Toxic Granulation Not Reportable 06/11/21 04:00 Toxic Vacuolation Not Reportable 06/11/21 04:00 Dohle Bodies Not Reportable 06/11/21 04:00 Pelger-Huet Anomaly Not Reportable 06/11/21 04:00 Diana Rods Not Reportable 06/11/21 04:00 Platelet Estimate Consistent w auto 06/11/21 04:00 Clumped Platelets Not Reportable 06/11/21 04:00 Plt Clumps, EDTA Not Reportable 06/11/21 04:00 Large Platelets Not Reportable 06/11/21 04:00 Giant Platelets Not Reportable 06/11/21 04:00 Platelet Satelliting Not Reportable 06/11/21 04:00 Plt Morphology Comment Not Reportable 06/11/21 04:00 RBC Morphology Not Reportable 06/11/21 04:00 Dimorphic RBCs Not Reportable 06/11/21 04:00 Polychromasia Not Reportable 06/11/21 04:00 Hypochromasia Not Reportable 06/11/21 04:00 Poikilocytosis Not Reportable 06/11/21 04:00 Anisocytosis 1+ 06/11/21 04:00 Microcytosis Not Reportable 06/11/21 04:00 Macrocytosis Not Reportable 06/11/21 04:00 Spherocytes Not Reportable 06/11/21 04:00 Pappenheimer Bodies Not Reportable 06/11/21 04:00 Sickle Cells Not Reportable 06/11/21 04:00 Target Cells Not Reportable 06/11/21 04:00 Tear Drop Cells Not Reportable 06/11/21 04:00 Ovalocytes Not Reportable 06/11/21 04:00 Helmet Cells Not Reportable 06/11/21 04:00 [place] Bodies Not Reportable 06/11/21 04:00 [place] Rings Not Reportable 06/11/21 04:00 [place] Cells Not Reportable 06/11/21 04:00 Bite Cells Not Reportable 06/11/21 04:00 Crenated Cell Not Reportable 06/11/21 04:00 Elliptocytes Not Reportable 06/11/21 04:00 Acanthocytes (Spur) Not Reportable 06/11/21 04:00 Rouleaux Not Reportable 06/11/21 04:00 Hemoglobin C Crystals Not Reportable 06/11/21 04:00 Schistocytes Not Reportable 06/11/21 04:00 Malaria parasites Not Reportable 06/11/21 04:00 Juan Miguel Bodies Not Reportable 06/11/21 04:00 Hem Pathologist Commnt No 06/11/21 04:00 Sodium 136 mmol/L (137-145) L 06/11/21 04:17 Potassium 3.7 mmol/L (3.6-5.0) 06/11/21 04:17 Chloride 107.4 mmol/L (98-107) H 06/11/21 04:17 Carbon Dioxide 23 mmol/L (22-30) 06/11/21 04:17 Anion Gap 9 mmol/L 06/11/21 04:17 BUN 49 mg/dL (7-17) H 06/11/21 04:17 Creatinine 1.1 mg/dL (0.6-1.2) 06/11/21 04:17 Estimated GFR > 60 ml/min 06/11/21 04:17 BUN/Creatinine Ratio 45 % 06/11/21 04:17 Glucose 137 mg/dL (65-100) H 06/11/21 04:17 POC Glucose 95 mg/dL (70-105) 06/12/21 05:42 Lactic Acid 1.90 mmol/L (0.7-2.0) 06/10/21 02:46 Calcium 8.6 mg/dL (8.4-10.2) 06/11/21 04:17 Total Bilirubin 1.20 mg/dL (0.1-1.2) 06/09/21 21:35 AST 336 units/L (5-40) H 06/09/21 21:35 ALT 330 units/L (7-56) H 06/09/21 21:35 Alkaline Phosphatase 208 units/L (35-129) H 06/09/21 21:35 C-Reactive Protein 34.10 mg/dL (0.00-1.30) H 06/11/21 04:17 Total Protein 7.9 g/dL (6.3-8.2) 06/09/21 21:35 Albumin 2.2 g/dL (3.9-5) L 06/09/21 21:35 Albumin/Globulin Ratio 0.4 % 06/09/21 21:35 Urine Color [place] (Yellow) 06/10/21 00:30 Urine Turbidity Cloudy (Clear) 06/10/21 00:30 Urine pH 6.0 (5.0-7.0) 06/10/21 00:30 Ur Specific [place] 1.019 (1.003-1.030) 06/10/21 00:30 Urine Protein <15 mg/dl mg/dL (Negative) 06/10/21 00:30 Urine Glucose (UA) Neg mg/dL (Negative) 06/10/21 00:30 Urine Ketones Neg mg/dL (Negative) 06/10/21 00:30 Urine Blood Neg (Negative) 06/10/21 00:30 Urine Nitrite Neg (Negative) 06/10/21 00:30 Urine Bilirubin Neg (Negative) 06/10/21 00:30 Urine Urobilinogen 2.0 mg/dL (<2.0) 06/10/21 00:30 Ur Leukocyte Esterase Lg (Negative) 06/10/21 00:30 Urine WBC (Auto) < 1.0 /HPF (0.0-6.0) 06/10/21 00:30 Urine RBC (Auto) 6.0 /HPF (0.0-6.0) 06/10/21 00:30 U Epithel Cells (Auto) < 1.0 /HPF (0-13.0) 06/10/21 00:30 Urine WBC Clumps 3+ /HPF 06/10/21 00:30 Amorphous Crystals Few 06/10/21 00:30 Urine Mucus Few /HPF 06/10/21 00:30 Nasal Screen MRSA (PCR) Negative (Negative) 06/10/21 Unknown Coronavirus (PCR) Negative (Negative) 06/10/21 Unknown Microbiology: Microbiology 06/10/21 00:30 Urine,Catheterized - Straight Catheter Urine Culture - Final Klebsiella Pneumoniae 06/09/21 21:35 Peripheral/Venous Blood Culture - Preliminary NO GROWTH AFTER 48 HOURS 06/09/21 21:37 Peripheral/Venous Blood Culture - Preliminary NO GROWTH AFTER 48 HOURS Active Medications - Current Medications Current Medications: Generic Name Dose Route Start Last Admin Trade Name Freq PRN Reason Stop Dose Admin Acetaminophen 650 mg 06/10/21 02:20 06/10/21 21:40 Acetaminophen 325 Mg Tab PO 650 mg Q4H PRN Administration Pain MILD(1-3)/Fever >100.5/RENNER Famotidine 10 mg 06/10/21 10:00 06/12/21 09:11 Famotidine 10 Mg Tab PO 10 mg BID NELIDA Administration Heparin Sodium (Porcine) 5,000 unit 06/10/21 10:00 06/12/21 09:11 Heparin 5,000 Unit/1 Ml Vial SUB-Q 5,000 unit Q12HR NELIDA Administration Hydromorphone HCl 0.5 mg 06/10/21 02:20 Hydromorphone 1 Mg/1 Ml Inj IV Q3H PRN Pain , Severe (7-10) Sodium Chloride 1,000 mls @ 125 mls/hr 06/10/21 02:30 06/12/21 09:17 Nacl 0.9% 1000 Ml IV 125 mls/hr DIRECT NELIDA Administration Meropenem 500 mg in 50 mls @ 50 mls/hr 06/12/21 12:00 Merrem/Ns 500 Mg/50 Ml IV Q6H NELIDA Morphine Sulfate 2 mg 06/10/21 02:20 06/12/21 09:24 Morphine 2 Mg/1 Ml Inj IV 2 mg Q4H PRN Administration Pain, Moderate (4-6) Nystatin 100,000 unit 06/10/21 22:00 06/12/21 09:10 Nystatin 500,000 Unit/5 Ml Oral Liqd PO 100,000 unit QID NELIDA Administration Ondansetron HCl 4 mg 06/10/21 02:20 Ondansetron 4 Mg/2 Ml Inj IV Q8H PRN Nausea And Vomiting Sodium Chloride 10 ml 06/10/21 10:00 06/12/21 09:11 Sodium Chloride 0.9% 10 Ml Flush Syringe IV 10 ml BID NELIDA Administration Sodium Chloride 10 ml 06/10/21 02:20 Sodium Chloride 0.9% 10 Ml Flush Syringe IV PRN PRN LINE FLUSH Nutrition/Malnutrition Assess - Dietary Evaluation Nutrition/Malnutrition Findings: Nutrition Notes Start: 06/10/21 09:51 Freq: Status: Active Protocol: Document 06/10/21 09:51 [facility] (Rec: 06/10/21 10:02 [facility] [id number]) Nutrition Notes Need for Assessment generated from: MD Order,roll forming machine set up mechanic,MST Initial or Follow up Assessment Current Diagnosis Acute Kidney Injury,Decubitus( Pressure Ulcer),Sepsis, Hypertension,Stroke, Hyperlipidemia Other Pertinent Diagnosis Infected decubitus ulcer, Acute metabolic encephalopathy , bilat LL pneu Current Diet No diet ordered Labs/Tests (06/09) BUN 53 Cr 1.4 Elevated LFTs K 4.5 Pertinent Medications NS at 125ml/hr Height 5 ft 4 in Weight 60.5 kg [place] Body Weight (kg) 54.54 BMI 22.8 Weight Status Appropriate Subjective/Other Information RD consulted for TF. Pt also screened for malnutrition risk , skin risk (Jc scale: 11) , chewing and swallowing difficulty and hx of receiving NTR support (she has a PEG tube). Pt from a [place]. Burn Absent Trauma Absent Difficulty In Swallowing,Chewing Skin Integrity/Comment Infected Stage 4 sacral ulcer Minimum of two criteria No Fluid Accumulation Mild (non-severe) #1 Nutrition Diagnosis Inadequate oral intake Etiology dysphagia As Evidenced by Signs and Symptoms pt NPO Is patient on ventilator? No Is Patient Ambulatory and/or Out of Bed No REE-(Brodhead-St. Jeor-confined to bed) 5531.135 Calculation Used for Recommendations Brod[place]-St Jeor Additional Notes Pro needs 0.8-1.2g/k-73g/ day Fluid needs 1ml/kcal Nutrition Intervention Nutrition Support: Nepro at 30ml/hr with 130ml water flush q4h. Kcal 1,296 Protein (gm) 58 Carbohydrates (gm) 116 Fat (gm) 69 Fluid (mL) 523 Fiber (gm) 9 Goal #1 TF tolerance Goal #2 TF to meet at least 75% energy and pro needs Goal #3 Wound healing Anticipated Discharge Needs: Continue EN support Follow-Up By: 06/13/21 Additional Comments F/U: new TF, renal function
[2021-06-12] MEDS: MEROPENEM/NS 500 MG/50 ML 500 MG/50 ML BAG IV SCH ×2 (15:09→23:16)
[2021-06-13] MEDS: SODIUM CHLORIDE 0.9% 1000 ML 1,000 ML IV SCH (03:40)
[2021-06-13] MEDS: MORPHINE 2 MG/1 ML INJ IV PRN (05:21)
[2021-06-13] MEDS: MEROPENEM/NS 500 MG/50 ML 500 MG/50 ML BAG IV SCH ×2 (05:21→12:49)
--- NOTE | 2021-06-13 09:25 | Progress Note ---
Assessment and Plan Assessment and plan: History of present illness: 61-year-old female with history of CVA with resultant dysphagia right-sided hemiparesis, CVA, hypertension, chronic kidney disease, venous thrombolic embolism, gastrostomy, dementia, COVID-19, stage IV sacral decubitus ulcer, septic shock, failure to thrive, UTI, hyperlipidemia, major affective disorder, anxiety disorder, constipation, anemia, rhinitis who presents from [facility] snf facility for fever 102.5 F and patient is hypotensive 88/ 54. Patient is nonverbal at baseline. Admitted to [facility] for Severe Sepsis 2/2 to decubitus ulcer and UTI. Hospital Course: 06/10: Continue empiric abx, will follow ID input. BLood pressure and lactic acid downtrending improved, continue fluid resuscitation. Will follow culture data. COVID PCR is negative. 06/11: Improved clinical status. Alert on my encounter, nonverbal so comfort difficult to asses. Osteo wound appears chronic, treatment not currenlty indicat ed per ID. Will follow antibiotics recs. Currently treating UTI and possible cellulitic rash on thighs. Anticipate return to [facility] early next week, Mon/. Patient's son was called and updated on her progress. 06/12: urine culture growing K. Pneumonia. D/c cefepime/vanco. Started merrem IV. will follow ID recs. Assessment and Plan: # Severe Sepsis POA (improved) Current Visit: Yes Status: Acute Plan to address problem: 2/2 K. Pneumonia UTI WBC of 21.2, hemoglobin of 7.4 hematocrit 22.8, BUN of 53 creatinine 1.4 and lactic acid 3.40, Normal saline at the rate of 125 cc/h. dc Cefepime 1 g IV every 8 hours and Vancomycin 1 g IV every 12 hours. start merrem Will consult infectious disease for evaluation. blood culture wound culture. COVID PCR Negative. MRSA swab Wound care evaluation. Recheck CBC BMP in the morning Not currently on pressors. # Complicated UTI (urinary tract infection) Current Visit: Yes Status: Acute Plan to address problem: - UCX: K. pneumonia UTI - Elevated WBC on UA, UCx sent - dc Patient is on cefepime 1 g IV every 8 hours and. Vancomycin 1 g IV every 12 hours - started Merrem IV - will follow ID recs. # Cellulitis on bilateral thighs Current Visit: Yes Status: Acute Plan to address problem: - Appears to have cellulitis on thighs based on images - Abx as above. - Aguilera ordered. # Decubitus ulcer, stage 4 with infection Current Visit: Yes Status: Acute Plan to address problem: - Cefepime 1 g IV every 8 hours. Vancomycin 1 g IV every 12 hours. Will consult infectious disease for evaluation. We do the blood culture wound culture. Wound care evaluation. Recheck CBC BMP in the morning - CT scan of the abdomen pelvis showed large ulceration overlying the sacrum with left gluteal decubitus ulceration. These extend to the level of the sacrum and there is mild sclerosis and ileal irregularity within the sacrum. Osteomyelitis is not excluded #2 lower lobe atelectasis infiltrate with trace effusion. - Appears to have chronic osteomyelitis and untreatable per ID - ID following # Acute kidney injury due to vasomotor nephropathy Current Visit: Yes Status: Acute Plan to address problem: Avoid nephrotoxic drug. Renally dose medication. Normal saline at the rate of 125 cc/h. Recheck BMP in the morning BUN of 53 creatinine 1.4 # Pneumonia of both lower lobes Current Visit: No Status: Acute Plan to address problem: Noted on CTAP. Suspected pneumonia. Oxygen via nasal cannula 2 L/min DuoNebs Normal saline at the rate of 125 cc/h. Cefepime 1 g IV every 8 hours. Vancomycin 1 g IV every 12 hours. Will consult infectious disease for evaluation. Sputum cx. # Nonverbal status Current Visit: No Status: Chronic Plan to address problem: Prior CVA, nonverbal at baseline. hemiplegia. non verbal. # DVT prophylaxis Current Visit: No Status: Acute Plan to address problem: Heparin 5000 unit SQ every 12 hours for DVT prophylaxis. Pepcid 20 mg p.o. twi ce daily for GI prophylaxis. Patient is a full code #Advance care planning Disease education conducted, care plan discussed, diagnoses discussed, prognosis discussed, patient is full code, patient acknowledges understanding and agree with care plan, +30 minutes. The high probability of a clinically significant, sudden or life threatening deterioration of the [ID, pulm] system(s) required my full and direct attention, intervention and personal management. The aggregate critical care time was [60] minutes. This time is in addition to time spent performing reported procedures but includes the following: [x] Data Review and interpretation [x] Patient assessment and monitoring of vital signs [x] Documentation [x] Medication orders and management Hospitalist Physical - Physical exam Narrative exam: General appearance: Present: no acute distress, well-nourished - EENT Eyes: Present: PERRL ENT: hearing intact, clear oral mucosa - Neck Neck: Present: supple, normal ROM - Respiratory Respiratory effort: normal Respiratory: bilateral: diminished - Cardiovascular Heart Sounds: Present: S1 & S2. Absent: rub, click - Extremities Extremities: pulses symmetrical, No edema Peripheral Pulses: within normal limits - Abdominal General gastrointestinal: Present: soft, non-tender, non-distended, normal bowel sounds, other (Gastrostomy tube present) Female genitourinary: Present: normal - Integumentary Integumentary: Present: clear, warm, dry - Musculoskeletal Musculoskeletal: gait normal, strength equal bilaterally - Psychiatric Psychiatric: (Patient is lethargic) - Neurologic Neurologic: (Patient is lethargic) - Additional findings Additional findings: Skin warm, dry, normal color, erythema (Erythema extends into the thighs and gluteus), other (Large stage IV sacral decubitus ulcer with eschar and purulence surrounding erythema and excoriation.). Absent: rash - Constitutional Vitals: Temp Pulse Resp BP Pulse Ox 97.8 F 67 21 149/95 100 06/13/21 08:52 06/13/21 08:00 06/13/21 08:00 06/13/21 08:00 06/13/21 08:00 General appearance: Present: no acute distress, well-nourished Results - Labs CBC & Chem 7: 06/11/21 04:00 06/11/21 04:17 Labs: Laboratory Last Values WBC 22.5 K/mm3 (4.5-11.0) H 06/11/21 04:00 RBC 2.74 M/mm3 (3.65-5.03) L 06/11/21 04:00 Hgb 7.5 gm/dl (10.1-14.3) L 06/11/21 04:00 Hct 23.8 % (30.3-42.9) L 06/11/21 04:00 MCV 87 fl (79-97) 06/11/21 04:00 MCH 28 pg (28-32) 06/11/21 04:00 MCHC 32 % (30-34) 06/11/21 04:00 RDW 16.5 % (13.2-15.2) H 06/11/21 04:00 Plt Count 263 K/mm3 (140-440) 06/11/21 04:00 [place] % (Auto) Chalk Machine Operator 06/09/21 21:35 Eos % (Auto) Chalk Machine Operator 06/09/21 21:35 Baso % (Auto) Chalk Machine Operator 06/09/21 21:35 Lymph # (Auto) Chalk Machine Operator 06/09/21 21:35 [place] # (Auto) Chalk Machine Operator 06/09/21 21:35 Eos # (Auto) Chalk Machine Operator 06/09/21 21:35 Baso # (Auto) Chalk Machine Operator 06/09/21 21:35 Add Manual Diff Complete 06/11/21 04:00 Total Counted 200 06/11/21 04:00 Seg Neuts % (Manual) 95.0 % (40.0-70.0) H 06/11/21 04:00 Band Neutrophils % 0 % 06/11/21 04:00 Lymphocytes % (Manual) 2.5 % (13.4-35.0) L 06/11/21 04:00 Reactive Lymphs % (Man) 0 % 06/11/21 04:00 Monocytes % (Manual) 2.0 % (0.0-7.3) 06/11/21 04:00 Eosinophils % (Manual) 0.5 % (0.0-4.3) 06/11/21 04:00 Basophils % (Manual) 0 % (0.0-1.8) 06/11/21 04:00 Metamyelocytes % 0 % 06/11/21 04:00 Myelocytes % 0 % 06/11/21 04:00 Promyelocytes % 0 % 06/11/21 04:00 Blast Cells % 0 % 06/11/21 04:00 Nucleated RBC % Not Reportable 06/11/21 04:00 Seg Neutrophils # Chalk Machine Operator 06/09/21 21:35 Seg Neutrophils # Man 21.4 K/mm3 (1.8-7.7) H 06/11/21 04:00 Band Neutrophils # 0.0 K/mm3 06/11/21 04:00 Lymphocytes # (Manual) 0.6 K/mm3 (1.2-5.4) L 06/11/21 04:00 Abs React Lymphs (Man) 0.0 K/mm3 06/11/21 04:00 Monocytes # (Manual) 0.5 K/mm3 (0.0-0.8) 06/11/21 04:00 Eosinophils # (Manual) 0.1 K/mm3 (0.0-0.4) 06/11/21 04:00 Basophils # (Manual) 0.0 K/mm3 (0.0-0.1) 06/11/21 04:00 Metamyelocytes # 0.0 K/mm3 06/11/21 04:00 Myelocytes # 0.0 K/mm3 06/11/21 04:00 Promyelocytes # 0.0 K/mm3 06/11/21 04:00 Blast Cells # 0.0 K/mm3 06/11/21 04:00 WBC Morphology Not Reportable 06/11/21 04:00 Hypersegmented Neuts Not Reportable 06/11/21 04:00 Hyposegmented Neuts Not Reportable 06/11/21 04:00 Hypogranular Neuts Not Reportable 06/11/21 04:00 Smudge Cells Not Reportable 06/11/21 04:00 Toxic Granulation Not Reportable 06/11/21 04:00 Toxic Vacuolation Not Reportable 06/11/21 04:00 Dohle Bodies Not Reportable 06/11/21 04:00 Pelger-Huet Anomaly Not Reportable 06/11/21 04:00 Diana Rods Not Reportable 06/11/21 04:00 Platelet Estimate Consistent w auto 06/11/21 04:00 Clumped Platelets Not Reportable 06/11/21 04:00 Plt Clumps, EDTA Not Reportable 06/11/21 04:00 Large Platelets Not Reportable 06/11/21 04:00 Giant Platelets Not Reportable 06/11/21 04:00 Platelet Satelliting Not Reportable 06/11/21 04:00 Plt Morphology Comment Not Reportable 06/11/21 04:00 RBC Morphology Not Reportable 06/11/21 04:00 Dimorphic RBCs Not Reportable 06/11/21 04:00 Polychromasia Not Reportable 06/11/21 04:00 Hypochromasia Not Reportable 06/11/21 04:00 Poikilocytosis Not Reportable 06/11/21 04:00 Anisocytosis 1+ 06/11/21 04:00 Microcytosis Not Reportable 06/11/21 04:00 Macrocytosis Not Reportable 06/11/21 04:00 Spherocytes Not Reportable 06/11/21 04:00 Pappenheimer Bodies Not Reportable 06/11/21 04:00 Sickle Cells Not Reportable 06/11/21 04:00 Target Cells Not Reportable 06/11/21 04:00 Tear Drop Cells Not Reportable 06/11/21 04:00 Ovalocytes Not Reportable 06/11/21 04:00 Helmet Cells Not Reportable 06/11/21 04:00 Nicholas-Pioche Bodies Not Reportable 06/11/21 04:00 Pep Rings Not Reportable 06/11/21 04:00 Hewitt Cells Not Reportable 06/11/21 04:00 Bite Cells Not Reportable 06/11/21 04:00 Crenated Cell Not Reportable 06/11/21 04:00 Elliptocytes Not Reportable 06/11/21 04:00 Acanthocytes (Spur) Not Reportable 06/11/21 04:00 Rouleaux Not Reportable 06/11/21 04:00 Hemoglobin C Crystals Not Reportable 06/11/21 04:00 Schistocytes Not Reportable 06/11/21 04:00 Malaria parasites Not Reportable 06/11/21 04:00 Juan Miguel Bodies Not Reportable 06/11/21 04:00 Hem Pathologist Commnt No 06/11/21 04:00 Sodium 136 mmol/L (137-145) L 06/11/21 04:17 Potassium 3.7 mmol/L (3.6-5.0) 06/11/21 04:17 Chloride 107.4 mmol/L (98-107) H 06/11/21 04:17 Carbon Dioxide 23 mmol/L (22-30) 06/11/21 04:17 Anion Gap 9 mmol/L 06/11/21 04:17 BUN 49 mg/dL (7-17) H 06/11/21 04:17 Creatinine 1.1 mg/dL (0.6-1.2) 06/11/21 04:17 Estimated GFR > 60 ml/min 06/11/21 04:17 BUN/Creatinine Ratio 45 % 06/11/21 04:17 Glucose 137 mg/dL (65-100) H 06/11/21 04:17 POC Glucose 98 mg/dL (70-105) 06/13/21 05:45 Lactic Acid 1.90 mmol/L (0.7-2.0) 06/10/21 02:46 Calcium 8.6 mg/dL (8.4-10.2) 06/11/21 04:17 Total Bilirubin 1.20 mg/dL (0.1-1.2) 06/09/21 21:35 AST 336 units/L (5-40) H 06/09/21 21:35 ALT 330 units/L (7-56) H 06/09/21 21:35 Alkaline Phosphatase 208 units/L (35-129) H 06/09/21 21:35 C-Reactive Protein 34.10 mg/dL (0.00-1.30) H 06/11/21 04:17 Total Protein 7.9 g/dL (6.3-8.2) 06/09/21 21:35 Albumin 2.2 g/dL (3.9-5) L 06/09/21 21:35 Albumin/Globulin Ratio 0.4 % 06/09/21 21:35 Urine Color [place] (Yellow) 06/10/21 00:30 Urine Turbidity Cloudy (Clear) 06/10/21 00:30 Urine pH 6.0 (5.0-7.0) 06/10/21 00:30 Ur Specific [place] 1.019 (1.003-1.030) 06/10/21 00:30 Urine Protein <15 mg/dl mg/dL (Negative) 06/10/21 00:30 Urine Glucose (UA) Neg mg/dL (Negative) 06/10/21 00:30 Urine Ketones Neg mg/dL (Negative) 06/10/21 00:30 Urine Blood Neg (Negative) 06/10/21 00:30 Urine Nitrite Neg (Negative) 06/10/21 00:30 Urine Bilirubin Neg (Negative) 06/10/21 00:30 Urine Urobilinogen 2.0 mg/dL (<2.0) 06/10/21 00:30 Ur Leukocyte Esterase Lg (Negative) 06/10/21 00:30 Urine WBC (Auto) < 1.0 /HPF (0.0-6.0) 06/10/21 00:30 Urine RBC (Auto) 6.0 /HPF (0.0-6.0) 06/10/21 00:30 U Epithel Cells (Auto) < 1.0 /HPF (0-13.0) 06/10/21 00:30 Urine WBC Clumps 3+ /HPF 06/10/21 00:30 Amorphous Crystals Few 06/10/21 00:30 Urine Mucus Few /HPF 06/10/21 00:30 Nasal Screen MRSA (PCR) Negative (Negative) 06/10/21 Unknown Coronavirus (PCR) Negative (Negative) 06/10/21 Unknown Microbiology: Microbiology 06/09/21 21:35 Peripheral/Venous Blood Culture - Preliminary NO GROWTH AFTER 72 HOURS 06/09/21 21:37 Peripheral/Venous Blood Culture - Preliminary NO GROWTH AFTER 72 HOURS 06/10/21 00:30 Urine,Catheterized - Straight Catheter Urine Culture - Final Klebsiella Pneumoniae Active Medications - Current Medications Current Medications: Generic Name Dose Route Start Last Admin Trade Name Freq PRN Reason Stop Dose Admin Acetaminophen 650 mg 06/10/21 02:20 06/10/21 21:40 Acetaminophen 325 Mg Tab PO 650 mg Q4H PRN Administration Pain MILD(1-3)/Fever >100.5/RENNER Famotidine 10 mg 06/10/21 10:00 06/12/21 23:16 Famotidine 10 Mg Tab PO 10 mg BID NELIDA Administration Heparin Sodium (Porcine) 5,000 unit 06/10/21 10:00 06/12/21 23:17 Heparin 5,000 Unit/1 Ml Vial SUB-Q 5,000 unit Q12HR NELIDA Administration Hydromorphone HCl 0.5 mg 06/10/21 02:20 Hydromorphone 1 Mg/1 Ml Inj IV Q3H PRN Pain , Severe (7-10) Sodium Chloride 1,000 mls @ 125 mls/hr 06/10/21 02:30 06/13/21 03:40 Nacl 0.9% 1000 Ml IV 125 mls/hr DIRECT NELIDA Administration Meropenem 500 mg in 50 mls @ 50 mls/hr 06/12/21 12:00 06/13/21 05:21 Merrem/Ns 500 Mg/50 Ml IV 50 mls/hr Q8H NELIDA Administration Morphine Sulfate 2 mg 06/10/21 02:20 06/13/21 05:21 Morphine 2 Mg/1 Ml Inj IV 2 mg Q4H PRN Administration Pain, Moderate (4-6) Nystatin 100,000 unit 06/10/21 22:00 06/12/21 23:17 Nystatin 500,000 Unit/5 Ml Oral Liqd PO 100,000 unit QID NELIDA Administration Ondansetron HCl 4 mg 06/10/21 02:20 Ondansetron 4 Mg/2 Ml Inj IV Q8H PRN Nausea And Vomiting Sodium Chloride 10 ml 06/10/21 10:00 06/12/21 09:11 Sodium Chloride 0.9% 10 Ml Flush Syringe IV 10 ml BID NELIDA Administration Sodium Chloride 10 ml 06/10/21 02:20 Sodium Chloride 0.9% 10 Ml Flush Syringe IV PRN PRN LINE FLUSH Nutrition/Malnutrition Assess - Dietary Evaluation Nutrition/Malnutrition Findings: Nutrition Notes Start: 06/10/21 09:51 Freq: Status: Active Protocol: Document 06/10/21 09:51 [facility] (Rec: 06/10/21 10:02 [facility]1983 [id number]) Nutrition Notes Need for Assessment generated from: MD Order,teller supervisor,MST Initial or Follow up Assessment Current Diagnosis Acute Kidney Injury,Decubitus( Pressure Ulcer),Sepsis, Hypertension,Stroke, Hyperlipidemia Other Pertinent Diagnosis Infected decubitus ulcer, Acute metabolic encephalopathy , bilat LL pneu Current Diet No diet ordered Labs/Tests (06/09) BUN 53 Cr 1.4 Elevated LFTs K 4.5 Pertinent Medications NS at 125ml/hr Height 5 ft 4 in Weight 60.5 kg [place] Body Weight (kg) 54.54 BMI 22.8 Weight Status Appropriate Subjective/Other Information RD consulted for TF. Pt also screened for malnutrition risk , skin risk (Jc scale: 11) , chewing and swallowing difficulty and hx of receiving NTR support (she has a PEG tube). Pt from a [place]. Burn Absent Trauma Absent Difficulty In Swallowing,Chewing Skin Integrity/Comment Infected Stage 4 sacral ulcer Minimum of two criteria No Fluid Accumulation Mild (non-severe) #1 Nutrition Diagnosis Inadequate oral intake Etiology dysphagia As Evidenced by Signs and Symptoms pt NPO Is patient on ventilator? No Is Patient Ambulatory and/or Out of Bed No REE-([place]-St. Jeor-confined to bed) 0536.671 Calculation Used for Recommendations [place]-St Jeor Additional Notes Pro needs 0.8-1.2g/k-73g/ day Fluid needs 1ml/kcal Nutrition Intervention Nutrition Support: Nepro at 30ml/hr with 130ml water flush q4h. Kcal 1,296 Protein (gm) 58 Carbohydrates (gm) 116 Fat (gm) 69 Fluid (mL) 523 Fiber (gm) 9 Goal #1 TF tolerance Goal #2 TF to meet at least 75% energy and pro needs Goal #3 Wound healing Anticipated Discharge Needs: Continue EN support Follow-Up By: 06/13/21 Additional Comments F/U: new TF, renal function
[2021-06-13] MEDS: FAMOTIDINE 10 MG TAB PO SCH (10:15)
[2021-06-13] MEDS: NYSTATIN 500,000 UNIT/5 ML ORAL LIQD PO SCH ×2 (10:15→15:46)
[2021-06-13] MEDS: HEPARIN 5,000 UNIT/1 ML VIAL SUB-Q SCH (10:15)
--- NOTE | 2021-06-13 10:20 | Discharge Summary ---
Providers - Providers Date of Admission: 06/10/21 02:20 Date of discharge: 06/13/21 Attending physician: PARI ROSS MD 06/10/21 02:20 Consult to Physician [CONS] Routine Comment: Consulting Provider: JOAN JENKINS Physician Instructions: Reason For Exam: sepsis 06/10/21 02:38 Consult to Wound/ET Nurse [CONS] Routine Reason For Exam: wound eval 06/10/21 07:26 Consult to Dietitian/Nutrition [CONS] Routine Physician Instructions: Reason For Exam: Reason for Consult: Write/Manage Tube Feeding 06/10/21 11:58 Occupational Therapy Evaluate and Treat [CONS] Routine Comment: Reason For Exam: Debility Physical Therapy Evaluation and Treat [CONS] Routine Comment: Reason For Exam: Debility 06/13/21 10:03 Consult to Case Management [CONS] Routine Services Needed at Discharge: Other Comment:: discharge planning. Outpatient abx. Primary care physician: SLEDGER Hospitalization Reason for admission: fever Condition: Fair Hospital course: History of present illness: 61-year-old female with history of CVA with resultant dysphagia right-sided hemiparesis, CVA, hypertension, chronic kidney disease, venous thrombolic embolism, gastrostomy, dementia, COVID-19, stage IV sacral decubitus ulcer, septic shock, failure to thrive, UTI, hyperlipidemia, major affective disorder, anxiety disorder, constipation, anemia, rhinitis who presents from [facility] assisted facility for fever 102.5 F and patient is hypotensive 88/ 54. Patient is nonverbal at baseline. Admitted to [facility] for Severe Sepsis 2/2 to decubitus ulcer and UTI. Hospital Course: 06/10: Continue empiric abx, will follow ID input. BLood pressure and lactic acid downtrending improved, continue fluid resuscitation. Will follow culture data. COVID PCR is negative. 06/11: Improved clinical status. Alert on my encounter, nonverbal so comfort difficult to asses. Osteo wound appears chronic, treatment not currenlty indicated per ID. Will follow antibiotics recs. Currently treating UTI and possible cellulitic rash on thighs. Anticipate return to [facility] early next week, Mon/Tues. Patient's son was called and updated on her progress. 06/12: urine culture growing K. Pneumonia. D/c cefepime/vanco. Started merrem IV. will follow ID recs. 06/13: Improved clinically. off supplemental oxygen. Discharge back to SNF today. ID ok with levaquin 750 mg daily via PEG x 5 days. Assessment and Plan: # Severe Sepsis POA (improved) Current Visit: Yes Status: Acute Plan to address problem: 2/2 K. Pneumonia UTI WBC of 21.2, hemoglobin of 7.4 hematocrit 22.8, BUN of 53 creatinine 1.4 and lactic acid 3.40, Normal saline at the rate of 125 cc/h. dc Cefepime 1 g IV every 8 hours and Vancomycin 1 g IV every 12 hours. start merrem Will consult infectious disease for evaluation. blood culture wound culture. COVID PCR Negative. MRSA swab Wound care evaluation. Recheck CBC BMP in the morning Not currently on pressors. # Complicated UTI (urinary tract infection) Current Visit: Yes Status: Acute Plan to address problem: - UCX: K. pneumonia UTI - Elevated WBC on UA, UCx sent - dc Patient is on cefepime 1 g IV every 8 hours and. Vancomycin 1 g IV every 12 hours - started Merrem IV - will follow ID recs. # Cellulitis on bilateral thighs Current Visit: Yes Status: Acute Plan to address problem: - Appears to have cellulitis on thighs based on images - Abx as above. - Aguilera ordered. # Decubitus ulcer, stage 4 with infection Current Visit: Yes Status: Acute Plan to address problem: - Cefepime 1 g IV every 8 hours. Vancomycin 1 g IV every 12 hours. Will consult infectious disease for evaluation. We do the blood culture wound culture. Wound care evaluation. Recheck CBC BMP in the morning - CT scan of the abdomen pelvis showed large ulceration overlying the sacrum with left gluteal decubitus ulceration. These extend to the level of the sacrum and there is mild sclerosis and ileal irregularity within the sacrum. Osteomyelitis is not excluded #2 lower lobe atelectasis infiltrate with trace effusion. - Appears to have chronic osteomyelitis and untreatable per ID - ID following # Acute kidney injury due to vasomotor nephropathy Current Visit: Yes Status: Acute Plan to address problem: Avoid nephrotoxic drug. Renally dose medication. Normal saline at the rate of 125 cc/h. Recheck BMP in the morning BUN of 53 creatinine 1.4 # Pneumonia of both lower lobes Current Visit: No Status: Acute Plan to address problem: Noted on CTAP. Suspected pneumonia. Oxygen via nasal cannula 2 L/min DuoNebs Normal saline at the rate of 125 cc/h. Cefepime 1 g IV every 8 hours. Vancomycin 1 g IV every 12 hours. Will consult infectious disease for evaluation. Sputum cx. # Nonverbal status Current Visit: No Status: Chronic Plan to address problem: Prior CVA, nonverbal at baseline. hemiplegia. non verbal. # DVT prophylaxis Current Visit: No Status: Acute Plan to address problem: Heparin 5000 unit SQ every 12 hours for DVT prophylaxis. Pepcid 20 mg p.o. twice daily for GI prophylaxis. Patient is a full code #Advance care planning Disease education conducted, care plan discussed, diagnoses discussed, prognosis discussed, patient is full code, patient acknowledges understanding and agree with care plan, +30 minutes. The high probability of a clinically significant, sudden or life threatening deterioration of the [ID, pulm] system(s) required my full and direct attention, intervention and personal management. The aggregate critical care time was [60] minutes. This time is in addition to time spent performing reported procedures but includes the following: [x] Data Review and interpretation [x] Patient assessment and monitoring of vital signs [x] Documentation [x] Medication orders and management Disposition: [facility] Final Discharge Diagnosis (Prints w/discharge instructions): Sepsis, UTI Time spent for discharge: 35 Core Measure Documentation - Palliative Care Palliative Care/ Comfort Measures: Not Applicable - Core Measures Any of the following diagnoses?: none Exam - Physical Exam Narrative exam: General appearance: Present: no acute distress, well-nourished - EENT Eyes: Present: PERRL ENT: hearing intact, clear oral mucosa - Neck Neck: Present: supple, normal ROM - Respiratory Respiratory effort: normal Respiratory: bilateral: diminished - Cardiovascular Heart Sounds: Present: S1 & S2. Absent: rub, click - Extremities Extremities: pulses symmetrical, No edema Peripheral Pulses: within normal limits - Abdominal General gastrointestinal: Present: soft, non-tender, non-distended, normal bowel sounds, other (Gastrostomy tube present) Female genitourinary: Present: normal - Integumentary Integumentary: Present: clear, warm, dry - Musculoskeletal Musculoskeletal: gait normal, strength equal bilaterally - Psychiatric Psychiatric: (Patient is lethargic) - Neurologic Neurologic: (Patient is lethargic) - Additional findings Additional findings: Skin warm, dry, normal color, erythema (Erythema extends into the thighs and gluteus), other (Large stage IV sacral decubitus ulcer with eschar and purulence surrounding erythema and excoriation.). Absent: rash - Constitutional Vitals: Temp Pulse Resp BP Pulse Ox 97.8 F 67 21 149/95 100 06/13/21 08:52 06/13/21 08:00 06/13/21 08:00 06/13/21 08:00 06/13/21 08:00 Plan Activity: advance as tolerated Follow up with: PRIMARY CARE, [Primary Care Provider] - 7 Days Prescriptions: levoFLOXacin [Levaquin TAB] 750 mg PO QDAY 5 Days #5 tablet
[2021-06-13 15:07] VITALS: BP 149/96
--- NOTE | 2021-06-13 15:53 | Progress Note ---
Assessment and Plan Cultures: Blood culture no growth so far A/P: 61-year-old female past medical history CVA with right-sided dysphagia, hemiparesis, hypertension, CKD, COVID-19, chronic sacral pressure ulcer, failure to thrive, numerous other issues #Acute sepsis: With fevers and leukocytosis. Likely secondary to infected chronic sacral decubitus ulcer. #Chronic sacral pressure ulcer: Likely extends down to bone. Given she is nonverbal and has hemiparesis, and a bone infection is likely untreatable at this point. We'll continue to treat soft tissue infections as they arise. #CKD: Renally dose medications #Nonverbal status: Secondary to history of CVA. Recs: -Agree with empiric vancomycin goal trough 10-20, cefepime. -Okay to discharge on Levaquin 750 mg every 24 hours to complete 5 days -Follow-up blood cultures -Wound care and obtain wound cultures of sacral wound. -Obtain CRP Discussed with Dr. Diaz Thank you for the consult, we will continue to follow. Giuliana Pineda MD [facility] ([facility] O: [phone] F: [phone] Subjective Date of service: 06/13/21 Interval history: Afebrile over the weekend, no acute change. Urine cultures with Klebsiella. Objective - Exam Narrative Exam: Physical exam deferred to reduce risk of transmission of COVID-19. Please refer to primary team's note. - Constitutional Vitals: Vital Signs Temp Pulse Resp BP Pulse Ox 98 F 70 22 149/96 100 06/13/21 12:00 06/13/21 15:00 06/13/21 15:00 06/13/21 15:00 06/13/21 15:00 Temperature -Last 24 Hours Temperature 98 F Temperature 97.8 F Temperature 98.0 F Temperature 98.1 F Temperature 99.2 F - Labs CBC & Chem 7: 06/11/21 04:00 06/11/21 04:17
== END 2021-06-13 16:35 | DRG 871 ==
LOC: ED 20:52 → IMCU 06-10 02:20
PROVIDERS: ADMIT Hospitalist; ATTEND Internal Medicine
PROC: 05HM33Z Insertion of Infusion Device into Right Internal Jugular Vein, Percutaneous Approach (ICD-10-PCS; principal; 2021-06-09)
PROC: B543ZZA Ultrasonography of Right Jugular Veins, Guidance (ICD-10-PCS; 2021-06-09)
DX: A41.9 Sepsis, unspecified organism (principal); L89.94 Pressure ulcer of unspecified site, stage 4; R65.21 Severe sepsis with septic shock; G93.41 Metabolic encephalopathy; J18.9 Pneumonia, unspecified organism; N17.0 Acute kidney failure with tubular necrosis; N39.0 Urinary tract infection, site not specified; L03.116 Cellulitis of left lower limb; L03.115 Cellulitis of right lower limb; Z20.822 Contact with and (suspected) exposure to COVID-19; E78.5 Hyperlipidemia, unspecified; Z82.49 Family history of ischemic heart disease and other diseases of the circulatory system; N18.9 Chronic kidney disease, unspecified; I12.9 Hypertensive chronic kidney disease with stage 1 through stage 4 chronic kidney disease, or unspecified chronic kidney disease
CPT/HCPCS: 36415; 71045; 71250; 74176; 80048; 80053; 81001; 82140; 82962; 85007; 85025; 86140; 87040; 87076; 87086; 87186; 87641; 94760; 99291; G0378; Q0162; J0692; J1644; J1953; J2185; J2270; J3370; J7030; J7040; J7050; U0003